=== PATIENT | female | born 1975 | race Caucasian/White ===

== ENCOUNTER 2020-11-17 14:35 | Outpatient (REF) | payer BC, SELFPAY ==
--- NOTE | ~2020-11-17 | XR_ITS ---
EXAMINATION: XR CHEST CLINICAL INFORMATION: Cough. COMPARISON: None TECHNIQUE: 2 views of the chest were obtained. FINDINGS: No significant abnormality is noted involving the heart, lungs, mediastinum, bony thorax or soft tissues. XR/XR chest 2V IMPRESSION: No acute cardiopulmonary process.
[2020-11-17 15:22] LABS: MANUAL DIFF FLAG NO
[2020-11-17 15:29] LABS: Basophils Absolute Auto 0.1 X10*3/uL (0.0-0.2); Basophils Percent Auto 0.4 % (0-2); Eosinophils Absolute Auto 1.2 X10*3/uL (0.0-0.4); Eosinophils Percent Auto 9.2 % (0-4); Hematocrit 45.3 % (37-47); Hemoglobin 15.3 g/dl (12.0-16.0); Imm Gran Abs Auto 0.05 X10*3/uL (0.00-0.03); Imm Gran Pct Auto 0.4 % (0.0-0.4); Lymphocytes Absolute Auto 2.8 X10*3/uL (1.2-4.9); Lymphocytes Percent Auto 20.4 % (20-40); Mean Corpuscular HGB Conc 33.8 g/dl (31.0-35.0); Mean Corpuscular Hemoglobin 32.3 pg (27.0-33.0); Mean Corpuscular Volume 95.6 fL (80-98); Mean Platelet Volume 9.6 fL (9.4-12.3); Monocytes Absolute Auto 0.8 X10*3/uL (0.1-1.2); Monocytes Percent Auto 6.2 % (2-11); Neutrophils Absolute Auto 8.6 X10*3/uL (2.0-8.3); Neutrophils Percent Auto 63.4 % (45-73); Platelet Count 291 X10*3/uL (160-400); Red Blood Count 4.74 X10*6/uL (4.20-5.50); Red Cell Distribution Width 12.7 % (11.0-16.0); White Blood Count 13.5 X10*3/uL (4.8-10.8)
[2020-11-17 15:48] LABS: Alanine Aminotransferase 24 U/L (0-31); Albumin Level 4.5 g/dL (3.5-5.0); Alkaline Phosphatase 64 U/L (39-117); Anion Gap 14 (12-20); Aspartate Amino Transferase 14 U/L (5-31); Bilirubin Total 1.4 mg/dL (0.0-1.0); Blood Urea Nitrogen 9 mg/dL (9-16); Calcium 9.4 mg/dL (8.4-10.2); Carbon Dioxide 27 mmol/L (22-29); Chloride 104 mmol/L (96-108); Estimated Glomerular Filt Rate > 60; Glucose Random 101 mg/dL (60-115); Sodium 140 mmol/L (135-145); Total Protein 7.1 g/dL (6.5-8.0)
[2020-11-18 11:54] LABS: SARS COV2 IgG Negative (Negative)
== END 2020-11-17 14:36 | disposition home or self-care (01) ==
LOC: HO.XRAY 14:35
PROVIDERS: PCP Family Medicine; Visit Provider Family Medicine
DX: Z00.00 Encounter for general adult medical examination without abnormal findings (principal); Z20.822 Contact with and (suspected) exposure to COVID-19; R05 Cough
CPT/HCPCS: 36415; 71046; 80053; 85025; 86769

== ENCOUNTER 2020-11-17 17:57 | Outpatient (REF) | payer BC, SELFPAY ==
[2020-11-17 18:43] LABS: Influenza A PCR NEGATIVE (Negative); Influenza B PCR NEGATIVE (Negative); Resp Syncy Virus RNA Qual PCR NEGATIVE (Negative); SARS COV2 PCR INHOUSE NEGATIVE (Negative)
== END 2020-11-17 17:58 | disposition home or self-care (01) ==
LOC: HO.LNP 17:57
PROVIDERS: Visit Provider Family Medicine
DX: Z20.822 Contact with and (suspected) exposure to COVID-19 (principal)
CPT/HCPCS: 0241U

== ENCOUNTER 2020-11-23 07:04 | Outpatient (REF) | payer BC, SELFPAY ==
[2020-11-23 11:07] LABS: Alanine Aminotransferase 15 U/L (0-31); Albumin Level 4.1 g/dL (3.5-5.0); Alkaline Phosphatase 53 U/L (39-117); Anion Gap 11 (12-20); Aspartate Amino Transferase 10 U/L (5-31); Blood Urea Nitrogen 10 mg/dL (9-16); Carbon Dioxide 26 mmol/L (22-29); Chloride 106 mmol/L (96-108); Cholesterol 243 mg/dL; Estimated Glomerular Filt Rate > 60; Glucose Fasting 79 mg/dL (60-99); HDL Cholesterol 68 mg/dL; LDL Cholesterol Calculated 146 mg/dl; Potassium 4.2 mmol/L (3.3-5.1); Sodium 139 mmol/L (135-145); Total Protein 6.3 g/dL (6.5-8.0); Triglycerides 147 mg/dL
[2020-11-23 11:21] LABS: TSH reflex Free T4 2.38 uIU/mL (0.32-4.0)
== END 2020-11-23 07:05 | disposition home or self-care (01) ==
LOC: HO.WFDLDS 07:04
PROVIDERS: Visit Provider Family Medicine
DX: Z00.00 Encounter for general adult medical examination without abnormal findings (principal)
CPT/HCPCS: 36415; 80053; 80061; 84443

== ENCOUNTER → 2020-12-04 10:16 | Outpatient (BNVA) | payer BC, SELFPAY | PROVIDERS: Visit Provider Internal Medicine Pulmonary Disease ==

== ENCOUNTER 2020-12-11 12:39 | Outpatient (REF) | payer BC, SELFPAY ==
--- NOTE | 2020-12-11 16:41 | PFT_ITS ---
FLOWS: FEV1 97% of predicted at 3.01 L. FVC 96% of predicted at 3.70 L. FEV1 to FVC ratio of 0.81. No bronchodilator response. LUNG VOLUMES: Total lung capacity 104% of predicted at 5.61 L. Residual volume 108% of predicted at 1.98 L. Slow vital capacity 102% of predicted at 3.63 L. Expiratory reserve volume 26% of predicted at 0.31 L. Diffusion capacity is normal. IMPRESSION: No obstructive or restrictive ventilatory defect. No bronchodilator response. Decreased expiratory reserve volume suggests extrathoracic restriction likely secondary to abdominal obesity. Eyad Nunes MD AP/MODL / [id number]
== END 2020-12-11 12:40 | disposition home or self-care (01) ==
LOC: HO.RESP 12:39
PROVIDERS: PCP Family Medicine; Visit Provider Internal Medicine Pulmonary Disease
DX: J45.909 Unspecified asthma, uncomplicated (principal)
CPT/HCPCS: 36415; 94060; 94727; 94729

== ENCOUNTER → 2020-12-21 09:24 | Outpatient (BNVA) | payer BC, SELFPAY | PROVIDERS: PCP Family Medicine; Visit Provider Advanced Practice Midwife ==

== ENCOUNTER → 2021-01-01 11:07 | Outpatient (BNVA) | payer BC, SELFPAY | PROVIDERS: PCP Family Medicine; Visit Provider Internal Medicine Pulmonary Disease | DX: J45.909 Unspecified asthma, uncomplicated (principal) ==

== ENCOUNTER 2021-01-04 10:09 | Outpatient (REF) | payer BC, SELFPAY ==
--- NOTE | ~2021-01-04 | MM_ITS ---
EXAMINATION: MM SCREENING DIGITAL BREAST TOMOSYNTHESIS, BILATERAL CLINICAL INFORMATION: Screening. Asymptomatic. The lifetime risk of breast cancer based on the Tyrer-Cuzick Model is 12%. COMPARISON: Mammography: 12/16/2019 (baseline). TECHNIQUE: Digital breast tomosynthesis is performed in both the craniocaudal and mediolateral oblique views along with computer-aided detection (CAD). Synthesized 2D images are generated from the tomosynthesis. FINDINGS: There are scattered areas of fibroglandular density (ACR BI-RADS breast composition Category b). Breast tissue composition borders on heterogeneously dense. There is fine fibronodular parenchymal pattern similar to prior study. There is no interval mass or architectural abnormality or abnormal calcifications. The axilla and skin contours are unremarkable. No significant changes. MM/MM tomosynthesis screening BI IMPRESSION: No mammographic evidence of malignancy. ASSESSMENT: BI-RADS 1: Negative RECOMMENDATION: Routine annual mammography screening. This patient's information was entered into a reminder system with a target due date for their next mammogram.
== END 2021-01-04 10:10 | disposition home or self-care (01) ==
LOC: HO.MAMMO 10:09
PROVIDERS: Visit Provider Family Medicine
DX: Z12.31 Encounter for screening mammogram for malignant neoplasm of breast (principal)
CPT/HCPCS: 77063; 77067

== ENCOUNTER → 2021-04-26 10:44 | Outpatient (BNVA) | payer BC, SELFPAY | PROVIDERS: PCP Family Medicine; Visit Provider Internal Medicine Pulmonary Disease | DX: J45.909 Unspecified asthma, uncomplicated (principal) ==

== ENCOUNTER 2021-05-31 10:46 | Outpatient (REF) | payer BC, SELFPAY | END 2021-05-31 10:47 | disposition home or self-care (01) | LOC: HO.MDS 10:46 | PROVIDERS: Visit Provider Internal Medicine Pulmonary Disease | DX: J45.50 Severe persistent asthma, uncomplicated (principal) | CPT/HCPCS: 96372 ==

== ENCOUNTER 2021-06-18 13:12 | Outpatient (REF) | payer BC, SELFPAY | END 2021-06-18 13:13 | disposition home or self-care (01) | LOC: HO.MDS 13:12 | PROVIDERS: Visit Provider Internal Medicine Pulmonary Disease | DX: J45.50 Severe persistent asthma, uncomplicated (principal) | CPT/HCPCS: 96372; J2357 ==

== ENCOUNTER 2021-07-05 12:31 | Outpatient (REF) | payer BC, SELFPAY | END 2021-07-05 12:32 | disposition home or self-care (01) | LOC: HO.MDS 12:31 | PROVIDERS: Visit Provider Internal Medicine Pulmonary Disease | DX: J45.50 Severe persistent asthma, uncomplicated (principal) | CPT/HCPCS: 96372; J2357 ==

== ENCOUNTER 2021-07-19 14:04 | Outpatient (REF) | payer BC, SELFPAY | END 2021-07-19 14:05 | disposition home or self-care (01) | LOC: HO.MDS 14:04 | PROVIDERS: Visit Provider Internal Medicine Pulmonary Disease | DX: J45.50 Severe persistent asthma, uncomplicated (principal) | CPT/HCPCS: 96372; J2357 ==

== ENCOUNTER 2021-08-02 11:25 | Outpatient (REF) | payer BC, SELFPAY | END 2021-08-02 11:26 | disposition home or self-care (01) | LOC: HO.MDS 11:25 | PROVIDERS: Visit Provider Internal Medicine Pulmonary Disease | DX: J45.50 Severe persistent asthma, uncomplicated (principal) | CPT/HCPCS: 96372; J2357 ==

== ENCOUNTER 2021-08-16 10:41 | Outpatient (REF) | payer BC, SELFPAY | END 2021-08-16 10:42 | disposition home or self-care (01) | LOC: HO.MDS 10:41 | PROVIDERS: Visit Provider Internal Medicine Pulmonary Disease | DX: J45.50 Severe persistent asthma, uncomplicated (principal) | CPT/HCPCS: 96372; J2357 ==

== ENCOUNTER 2021-09-06 11:42 | Outpatient (REF) | payer BC, SELFPAY | END 2021-09-06 11:43 | disposition home or self-care (01) | LOC: HO.MDS 11:42 | PROVIDERS: Visit Provider Internal Medicine Pulmonary Disease | DX: J45.50 Severe persistent asthma, uncomplicated (principal) | CPT/HCPCS: 96372; J2357 ==

== ENCOUNTER 2021-09-20 10:50 | Outpatient (REF) | payer BC, SELFPAY | END 2021-09-20 10:51 | disposition home or self-care (01) | LOC: HO.MDS 10:50 | PROVIDERS: Visit Provider Internal Medicine Pulmonary Disease | DX: J45.50 Severe persistent asthma, uncomplicated (principal) | CPT/HCPCS: 96372; J2357 ==

== ENCOUNTER 2021-10-04 12:36 | Outpatient (REF) | payer BC, SELFPAY | END 2021-10-04 12:37 | disposition home or self-care (01) | LOC: HO.MDS 12:36 | PROVIDERS: Visit Provider Internal Medicine Pulmonary Disease | DX: J45.50 Severe persistent asthma, uncomplicated (principal) | CPT/HCPCS: 96372; J2357 ==

== ENCOUNTER 2022-01-24 09:44 | Outpatient (REF) | payer BC, SELFPAY ==
[2022-01-24 10:00] LABS: MANUAL DIFF FLAG NO
[2022-01-24 10:25] LABS: Basophils Absolute Auto 0.1 X10*3/uL (0.0-0.2); Basophils Percent Auto 0.5 % (0-2); Eosinophils Absolute Auto 0.2 X10*3/uL (0.0-0.4); Eosinophils Percent Auto 1.9 % (0-4); Hematocrit 44.5 % (37.0-47.0); Hemoglobin 14.8 g/dl (12.0-16.0); Imm Gran Abs Auto 0.03 X10*3/uL (0.00-0.03); Imm Gran Pct Auto 0.3 % (0.0-0.4); Lymphocytes Absolute Auto 2.8 X10*3/uL (1.2-4.9); Mean Corpuscular HGB Conc 33.3 g/dl (31.0-35.0); Mean Corpuscular Hemoglobin 31.9 pg (27.0-33.0); Mean Corpuscular Volume 95.9 fL (80.0-98.0); Mean Platelet Volume 9.8 fL (9.4-12.3); Monocytes Absolute Auto 0.7 X10*3/uL (0.1-1.2); Monocytes Percent Auto 6.7 % (2-11); Neutrophils Absolute Auto 6.3 x10*3/uL (2.0-8.3); Neutrophils Percent Auto 62.6 % (45-73); Platelet Count 268 X10*3/uL (160-400); Red Blood Count 4.64 X10*6/uL (4.20-5.50); Red Cell Distribution Width 12.1 % (11.0-16.0); White Blood Count 10.1 X10*3/uL (4.8-10.8)
[2022-01-24 10:36] LABS: Appearance Urine Cloudy; Color Urine Yellow; Glucose Urine UA Negative (Negative); Leukocyte Esterase Urine Negative (Negative); Nitrite Urine Negative (Negative); PH 8.5 (5.0-9.0); UMIC TRIGGER UA YES; Urine Blood Trace (Negative); Urine Ketones Negative (Negative); Urine Protein Negative (Neg-Trace)
[2022-01-24 10:41] LABS: Bacteria Urine 1+ (None Seen); Hyaline Casts Urine 0-2 /LPF (0-2); WBC Urine 0-5 /HPF (0-5)
[2022-01-24 11:03] LABS: Alanine Aminotransferase 28 U/L (0-31); Albumin Level 4.4 g/dL (3.5-5.0); Alkaline Phosphatase 56 U/L (39-117); Anion Gap 14 (12-20); Aspartate Amino Transferase 17 U/L (5-31); Bilirubin Total 0.6 mg/dL (0.0-1.0); Blood Urea Nitrogen 10 mg/dL (9-16); Calcium 9.1 mg/dL (8.4-10.2); Carbon Dioxide 23 mmol/L (22-29); Chloride 103 mmol/L (96-108); Cholesterol 212 mg/dL; Estimated Glomerular Filt Rate > 60; Glucose Fasting 95 mg/dL (60-99); HDL Cholesterol 49 mg/dL; LDL Cholesterol Calculated 130 mg/dl; Potassium 4.4 mmol/L (3.3-5.1); Sodium 136 mmol/L (135-145); Total Protein 6.9 g/dL (6.5-8.0); Triglycerides 166 mg/dL
[2022-01-24 11:29] LABS: TSH reflex Free T4 1.46 uIU/mL (0.32-4.0)
[2022-01-24 11:59] LABS: Creatinine Urine 63.87 mg/dL; Microalbumin Urine < 5.0 mg/L
[2022-01-25 13:44] LABS: H Pylori Breath Test Negative (Negative)
== END 2022-01-24 09:45 | disposition home or self-care (01) ==
LOC: HO.LAB 09:44
PROVIDERS: Nurse Practitioner Family; PCP Family Medicine; Visit Provider Family Medicine
DX: Z00.00 Encounter for general adult medical examination without abnormal findings (principal); I10 Essential (primary) hypertension
CPT/HCPCS: 36415; 80053; 80061; 81001; 82043; 83013; 84443; 85025

== ENCOUNTER 2022-02-21 12:57 | Outpatient (REF) | payer BC, SELFPAY ==
--- NOTE | ~2022-02-21 | MM_ITS ---
EXAMINATION: MM SCREENING DIGITAL BREAST TOMOSYNTHESIS, BILATERAL CLINICAL INFORMATION: Screening. Asymptomatic. The lifetime risk of breast cancer based on the Tyrer-Cuzick Model is 10%. COMPARISON: Mammography: 01/04/2021, 12/16/2019 (baseline) TECHNIQUE: Digital breast tomosynthesis is performed in both the craniocaudal and mediolateral oblique views along with computer-aided detection (CAD). Synthesized 2D images are generated from the tomosynthesis. FINDINGS: There are scattered areas of fibroglandular density (ACR BI-RADS breast composition Category b). There are no significant masses, abnormal calcifications, or other abnormalities. Parenchymal pattern is similar to prior studies. No developing density or architectural abnormality. The axilla are unremarkable. MM/MM tomosynthesis screening BI IMPRESSION: No mammographic evidence of malignancy. ASSESSMENT: BI-RADS 1: Negative RECOMMENDATION: Routine annual mammography screening. This patient's information was entered into a reminder system with a target due date for their next mammogram.
== END 2022-02-21 12:58 | disposition home or self-care (01) ==
LOC: HO.MAMMO 12:57
PROVIDERS: Visit Provider Family Medicine
DX: Z12.31 Encounter for screening mammogram for malignant neoplasm of breast (principal)
CPT/HCPCS: 77063; 77067

== ENCOUNTER 2022-05-09 09:59 | Outpatient (REF) | payer BC, SELFPAY ==
[2022-05-09 13:00] LABS: Cholesterol 204 mg/dL; HDL Cholesterol 50 mg/dL; LDL Cholesterol Calculated 130 mg/dl; Triglycerides 123 mg/dL
== END 2022-05-09 10:00 | disposition home or self-care (01) ==
LOC: HO.WFDLDS 09:59
PROVIDERS: Visit Provider Family Medicine
DX: Z00.00 Encounter for general adult medical examination without abnormal findings (principal); E78.9 Disorder of lipoprotein metabolism, unspecified
CPT/HCPCS: 36415; 80061

== ENCOUNTER → 2022-07-06 14:32 | Outpatient (BNVA) | payer BC, SELFPAY | PROVIDERS: PCP Family Medicine; Visit Provider Advanced Practice Midwife | DX: Z13.89 Encounter for screening for other disorder (principal) ==

== ENCOUNTER 2022-07-27 14:19 | Outpatient (REF) | payer BC, SELFPAY ==
--- NOTE | ~2022-07-27 | US_ITS ---
EXAMINATION: US PELVIS CLINICAL INFORMATION: Abnormal uterine and vaginal bleeding; the last menstrual period was 2 weeks prior. COMPARISON: None available. TECHNIQUE: Ultrasound of the pelvis is performed using both transabdominal and transvaginal transducers along with Doppler. Transvaginal imaging is performed due to inadequate visualization transabdominally. FINDINGS: The uterus is of normal size and echogenicity measuring 9.7 x 4.5 x 5.5 cm. The uterus is anteverted and anteflexed. A regular, homogeneous endometrium is identified measuring 0.9 cm. FIBROIDS: There are 3 fibroids seen. 1. Location: Posterior body, subserosal. Size: 1.9 x 1.8 x 2.0 cm. Fibroid characteristics: Heterogeneously hypoechoic. 2. Location: Anterior mid body, myometrial. Size: 0.7 x 0.5 x 0.7 cm. Fibroid characteristics: Heterogeneously hypoechoic. 3. Location: Anterior upper body, myometrial. Size: 0.7 x 0.5 x 0.8 cm. Fibroid characteristics: Heterogeneously hypoechoic. Both ovaries are of normal size and echogenicity. The ovary measures 2.7 x 1.8 x 2.0 cm for a volume of 5.1 mL. The right ovary contains a 1.4 cm in maximal diameter dominant follicle. The left ovary measures 3.6 x 2.8 x 3.2 cm for a volume of 16.9 mL. The left ovary contains a 2.2 cm in maximal diameter physiologic cyst. There is no pelvic free fluid. US/US pelvic and transvaginal IMPRESSION: 1. There are uterine fibroids, as detailed. 2. Nabothian cysts are seen within the cervix. 3. A 1.4 cm right ovarian dominant follicle and a 2.2 cm left ovarian physiologic cysts show simple appearances and require no imaging follow-up.
== END 2022-07-27 14:20 | disposition home or self-care (01) ==
LOC: HO.US 14:19
PROVIDERS: PCP Family Medicine; Visit Provider Advanced Practice Midwife
DX: N93.9 Abnormal uterine and vaginal bleeding, unspecified (principal)
CPT/HCPCS: 76830; 76856

== ENCOUNTER 2022-08-17 14:56 | Outpatient (REF) | payer BC, SELFPAY | END 2022-08-17 14:57 | disposition home or self-care (01) | LOC: HO.LAB 14:56 | PROVIDERS: PCP Family Medicine; Visit Provider Advanced Practice Midwife | DX: D25.9 Leiomyoma of uterus, unspecified (principal); N93.9 Abnormal uterine and vaginal bleeding, unspecified; N83.209 Unspecified ovarian cyst, unspecified side; N88.8 Other specified noninflammatory disorders of cervix uteri; Z71.2 Person consulting for explanation of examination or test findings; Z32.02 Encounter for pregnancy test, result negative | CPT/HCPCS: 58100; 81025; 88305 ==

== ENCOUNTER 2022-08-24 09:02 | Outpatient (REF) | payer BC, SELFPAY ==
[2022-08-24 12:03] LABS: Hepatitis A Antibody IgG Nonreactive (Nonreactive); ~Hepatitis A Antibody IgG 0.35 S/CO (0.00-0.99)
[2022-08-24 12:04] LABS: HBS Num1 70.01 mIU/mL (0-7.99); HBc Num1 0.12 S/CO (0.00-0.79); Hepatitis B Core Antibody Nonreactive (Nonreactive); Hepatitis B Surface Antigen Negative (Negative); ~Hepatitis B Surface Antibody REACTIVE (Nonreactive); ~Hepatitis C Antibody Nonreactive (Nonreactive)
[2022-08-26 21:59] LABS: Hepatitis BE Antibody NON-REACTIVE (NON-REACTIVE)
== END 2022-08-24 09:03 | disposition home or self-care (01) ==
LOC: HO.WFDLDS 09:02
PROVIDERS: Visit Provider Family Medicine
DX: Z00.00 Encounter for general adult medical examination without abnormal findings (principal); Z11.59 Encounter for screening for other viral diseases; Z11.3 Encounter for screening for infections with a predominantly sexual mode of transmission; Z72.89 Other problems related to lifestyle
CPT/HCPCS: 36415; 86704; 86706; 86707; 86708; 86803; 87340

== ENCOUNTER → 2022-09-16 15:30 | Outpatient (BNVA) | payer BC, SELFPAY | PROVIDERS: PCP Family Medicine; Visit Provider Advanced Practice Midwife | DX: Z71.2 Person consulting for explanation of examination or test findings (principal) | CPT/HCPCS: 81025 ==

== ENCOUNTER 2022-11-23 10:02 | Outpatient (REF) | payer BC, SELFPAY ==
[2022-11-23 11:35] LABS: Alanine Aminotransferase 63 U/L (0-31); Albumin Level 4.4 g/dL (3.5-5.0); Alkaline Phosphatase 57 U/L (39-117); Anion Gap 11 (12-20); Aspartate Amino Transferase 43 U/L (5-31); Bilirubin Total 0.9 mg/dL (0.0-1.0); Blood Urea Nitrogen 12 mg/dL (9-16); Calcium 9.6 mg/dL (8.4-10.2); Carbon Dioxide 27 mmol/L (22-29); Chloride 102 mmol/L (96-108); Cholesterol 230 mg/dL (<200); Estimated Glomerular Filt Rate > 60; Glucose Fasting 99 mg/dL (60-99); HDL Cholesterol 57 mg/dL (>40); LDL Cholesterol Calculated 142 mg/dL (<100); Potassium 4.3 mmol/L (3.3-5.1); Sodium 136 mmol/L (135-145); Total Protein 7.3 g/dL (6.5-8.0); Triglycerides 159 mg/dL (<150)
[2022-11-23 11:50] LABS: TSH reflex Free T4 1.97 uIU/mL (0.32-4.0)
[2022-11-23 14:20] LABS: Appearance Urine Clear; Color Urine Yellow; Glucose Urine UA Negative (Negative); Leukocyte Esterase Urine Negative (Negative); Nitrite Urine Negative (Negative); PH 6.5 (5.0-9.0); Specific Gravity - Urine <= 1.005 (1.005-1.025); Urine Blood Negative (Negative); Urine Ketones Negative (Negative); Urine Protein Negative (Neg-Trace)
[2022-11-23 15:28] LABS: Creatinine Urine 70.28 mg/dL; Microalbumin Urine < 5.0 mg/L
== END 2022-11-23 10:03 | disposition home or self-care (01) ==
LOC: HO.LAB 10:02
PROVIDERS: PCP Family Medicine; Visit Provider Family Medicine
DX: Z00.00 Encounter for general adult medical examination without abnormal findings (principal); I10 Essential (primary) hypertension
CPT/HCPCS: 36415; 80053; 80061; 81003; 82043; 84443

== ENCOUNTER 2022-11-23 10:02 | Outpatient (AMB) | payer BC, SELFPAY ==
[2022-11-23 10:06] VITALS: BP 152/82; PULSE 74; O2SAT 96; BMI 33.1
--- NOTE | 2022-11-23 10:06 | A.OFFVIS_ITS ---
Intake Vital Signs 11/23/22 10:06 Height 5 ft 6 in Weight 205 lb 0.478 oz BMI 33.1 BP 152/82 H Blood Pressure Location Lt brachial Position Sitting Pulse 74 Pulse Source Doppler Pulse Oximetry (%) 96 Oxygen Delivery Method Room Air Intake Visit Reasons: Asthma Allergies Seasonal Allergies Allergy (Mild, Verified 11/23/22 10:10) Itchy Eyes HPI Asthma HPI Details 47-year-old lady, nonsmoker, with underlying history of bronchitis as a child now followed for moderate to severe persistent asthma and environmental allergies.? She continues on Symbicort, Singulair, Flonase, and albuterol MDI with excellent control of his symptoms. She denies any recent exacerbations. [facility] Medical History Asthma (Unknown) Cervical cyst Fibroid GERD (gastroesophageal reflux disease) High cholesterol Hypertension Ovarian cyst Uterine fibroid Surgical History History of dilatation and curettage Family History Mother HTN (hypertension) Father HTN (hypertension) Unknown Breast cancer Maternal Aunt Liver cancer Breast cancer Paternal Aunt Colon cancer Other Mental health disorder Social History Household Members: Spouse Housing: House Alcohol intake: current Alcohol intake frequency: 0-2 drinks per day Alcohol type: wine Patient Tobacco Use Status: Never used Tobacco e-Cigarette/Vaping Use: Never Used Second Hand Smoke Exposure: No service: No Current occupational status: employed 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 occupational 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: No Sexual orientation: Straight/Heterosexual Gender identity: Female Cognitive needs: No Hearing needs: No Vision needs: No (reading glasses) Female Reproductive History Menstrual Age of Menarche: 12 Review of Systems Const Denies daytime sleepiness, Denies excessive sweating, Denies fatigue, Denies fever(s), Denies lethargy, Denies malaise, Denies night sweats, Denies snoring and Denies weight loss Eyes Denies blurry vision and Denies itchy eyes ENT Denies nasal congestion, Denies post nasal drip, Denies sinus pain, Denies sinus pressure and Denies other ( Thrush) Card Denies chest pain, Denies pedal edema, Denies dyspnea, Denies orthopnea and Denies paroxysmal nocturnal dyspnea Resp Denies cough, Denies hemoptysis, Denies excessive phlegm production, Denies dyspnea, Denies snoring and Denies wheezing GI Denies abdominal pain and Denies heartburn Musc Denies myalgias, Denies arthralgias and Denies joint swelling Skin/Breast Denies rash Neuro Denies memory loss and Denies seizure-like activity Psych Denies abnormal sleep pattern, Denies anxiety and Denies memory loss Endo Denies excessive sweating, Denies fatigue and Denies heat intolerance [place]/Lymph Denies easy bruising Aller/Immun Denies itchy eyes, Denies seasonal rhinorrhea and Denies wheezing Physical Exam Vital Signs: Last Vital Signs Pulse 74 11/23/22 10:06 BP 152/82 H 11/23/22 10:06 Pulse Ox 96 11/23/22 10:06 Oxygen Delivery Method Room Air 11/23/22 10:06 BMI result Body Mass Index 33.1 Const General: no acute distress and alert Nutritional Appearance: not obese Orientation/consciousness: Other orientation findings ( oriented) HEENT Head: Yes atraumatic Eyes General: appearance normal, both eyes and all related structures Sclerae: sclerae normal EOM: EOMs intact bilaterally Neck Neck: Yes supple Lymphatic: no lymphadenopathy noted Resp Effort & Inspection: normal respiratory effort and no use of accessory muscles Auscultation: clear to auscultation bilaterally Cardio Rate: regular rate Rhythm: regular rhythm Heart sounds: no gallops, no murmurs and no rubs Skin General skin exam: other ( warm) Extrem General: No clubbing, No cyanosis and No edema Assessment & Plan Assessment & Plan (1) Asthma: Onset Date: Unknown Code(s): J45.909 - Unspecified asthma, uncomplicated Plan: Well controlled current regimen of Symbicort and albuterol MDI. Continue current regimen. Will obtain full PFT. (2) Environmental allergies: Code(s): Z91.09 - Other allergy status, other than to drugs and biological substances Plan: Well controlled on Singulair and Flonase. Continue current regimen. Orders: Orders PFT pulmonary function test Today J45.909 - Unspecified asthma, uncomplicated Coding Level of Care Code Est Pt Level 4 (62824) Diagnoses Asthma J45.909 Environmental allergies Z91.09
== END 2022-11-23 10:25 | disposition home or self-care (01) ==
PROVIDERS: PCP Family Medicine; Visit Provider Internal Medicine Pulmonary Disease
DX: J45.909 Unspecified asthma, uncomplicated (principal); Z91.09 Other allergy status, other than to drugs and biological substances
CPT/HCPCS: 99214

== ENCOUNTER 2022-11-30 08:36 | Outpatient (AMB) | payer BC, SELFPAY ==
[2022-11-30 08:41] VITALS: BP 132/72; PULSE 73; O2SAT 97; BMI 32.8
--- NOTE | 2022-11-30 08:41 | MHC.PC.OV ---
Vital Signs 11/30/22 08:41 Height 5 ft 6 in Weight 203 lb BMI 32.8 BP 132/72 Blood Pressure Location Lt brachial Position Sitting Pulse 73 Pulse Source Pulse Oximeter Pulse Oximetry (%) 97 Oxygen Delivery Method Room Air Intake Visit Reasons: f/u hypertension Intake Note: Patient is here for follow up on hypertension and labs. Allergies Seasonal Allergies Allergy (Mild, Verified 11/30/22 08:44) Itchy Eyes Medication List - Last Reconciled 11/30/22 by Rajan Moraes MD albuterol sulfate 90 mcg/actuation 2 puffs PO Q4H PRN 30 days clindamycin-benzoyl peroxide 1.2 %(1 % base) -5 % 1 appl topical DAILY fluticasone propionate 50 mcg/actuation (Flonase Allergy Relief) 1 spray intranasal Q12H 30 days lisinopril-hydrochlorothiazide 20-12.5 mg 1 tab PO DAILY 90 days montelukast 10 mg PO DAILY pantoprazole 40 mg PO QAM Symbicort 160-4.5 mcg/actuation (budesonide-formoterol) 2 puffs PO BID NS Tobacco use date assessed: 11/30/22 Dental Screening Dental Screen Date: 11/30/22 Did you have a dental visit in the last 12 months?: Yes Did you have a dental problem in the last 6 months where you did not have access to dental care?: No Was dental information given to patient?: Patient has dentist HPI f/u hypertension HPI Details 47 y/o female presents to f/u hypertension. Had encouraged weight control, exercise and salt/sodium reduction in diet last office visit. Blood pressure today is 132/72. She is on lisinopril-hydrochlorothiazide 20-12.5mg daily. Labs were drawn 11/23/22. Reviewed labs with pt. Triglycerides 159. TC 230. LDL 142. HDL 57. Elevated liver enzymes. Hepatitis labs were normal and negative. [facility], [facility] Medical History Asthma (Unknown) Cervical cyst Fibroid GERD (gastroesophageal reflux disease) High cholesterol Hypertension Ovarian cyst Uterine fibroid Surgical History History of dilatation and curettage Family History Mother HTN (hypertension) Father HTN (hypertension) Unknown Breast cancer Maternal Aunt Liver cancer Breast cancer Paternal Aunt Colon cancer Other Mental health disorder Social History Household Members: Spouse Housing: House Alcohol intake: current Alcohol intake frequency: 0-2 drinks per day Alcohol type: wine Patient Tobacco Use Status: Never used Tobacco e-Cigarette/Vaping Use: Never Used Second Hand Smoke Exposure: No service: No Current occupational status: employed 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 Blake Esteban, Mitzi Gutierrez, Chance Woods and colleagues, with an educational harish from [employer]. Review of Systems Const Denies chills, Denies fatigue, Denies fever(s), Denies headache(s) and Denies weakness ENT Denies dizziness and Denies headache(s) Card Denies chest pain, Denies lightheadedness, Denies dyspnea and Denies other (Palpitations) Resp Denies cough, Denies dyspnea, Denies wheezing and Denies other ( shortness of breath) Musc Denies numbness and Denies tingling Neuro Denies dizziness, Denies headache(s), Denies numbness, Denies tingling, Denies paresthesias and Denies weakness Psych Denies anxiety and Denies depression Endo Denies fatigue Aller/Immun Denies wheezing Physical exam (Primary Care) Vital Signs: Last Vital Signs Pulse 73 11/30/22 08:41 BP 132/72 11/30/22 08:41 Pulse Ox 97 11/30/22 08:41 Oxygen Delivery Method Room Air 11/30/22 08:41 BMI result Body Mass Index 32.8 Tobacco/Smoking Status: Tobacco use Status Tobacco use date assessed 11/30/22 11/30/22 08:51 Patient Tobacco Use Status Never used Tobacco 11/30/22 08:51 e-Cigarette/Vaping Use Never Used 11/30/22 08:51 Thrive Assessment: Date of Thrive Assessment Date Thrive assessed 12/06/21 11/30/22 08:51 Const General: no acute distress and well developed Nutritional Appearance: well nourished Orientation/consciousness: patient oriented x3 HENMT Head: Yes normocephalic and Yes atraumatic Eyes General: appearance normal, both eyes and all related structures Pupils: Equal, round and reactive pupils present EOM: EOMs intact bilaterally Resp Effort & Inspection: normal respiratory effort Auscultation: clear to auscultation bilaterally Cardio Rate: regular rate Rhythm: regular rhythm Heart sounds: S1 normal heart sound present, S2 normal heart sound present, no gallops, no murmurs and no rubs Neuro General: patient oriented x3 and gait normal Cranial nerves: Yes Equal, round and reactive pupils present Psych Affect: normal affect Assessment and Plan Assessment & Plan (1) Essential hypertension: Code(s): I10 - Essential (primary) hypertension Plan: Blood pressure is in controlled range but appears to fluctuate Encouraged diet lower in salt and sodium Encouraged exercise and weight loss (2) Hyperlipidemia: Code(s): E78.5 - Hyperlipidemia, unspecified Plan: TC, LDL and triglycerides are elevated Encouraged diet lower in saturated fats and cholesterol. Encouraged exercise and weight loss (3) Elevated liver enzymes: Code(s): R74.8 - Abnormal levels of other serum enzymes Plan: Likely multifactorial though may be primarily fatty liver disorder Will have patient work on weight loss and recheck in a few months. If liver enzymes are the same or higher, will check an ultrasound (4) Need for hepatitis B screening test: Code(s): Z11.59 - Encounter for screening for other viral diseases Plan: Patient shows immunity to hep B. No infection Also testing for hep C is negative Orders: Orders Comprehensive [place]. Panel Fast Today Z00.00 - Encounter for general adult medical examination without abnormal findings Lipid Panel Today Z00.00 - Encounter for general adult medical examination without abnormal findings TSH reflex Free T4 Today Z00.00 - Encounter for general adult medical examination without abnormal findings UA and rflx microscopic Today Z00.00 - Encounter for general adult medical examination without abnormal findings Coding Level of Care Code Est Pt Level 4 (33035) Diagnoses Essential hypertension I10 Hyperlipidemia E78.5 Elevated liver enzymes R74.8 Need for hepatitis B screening test Z11.59
== END 2022-11-30 09:17 | disposition home or self-care (01) ==
PROVIDERS: Visit Provider Family Medicine
DX: I10 Essential (primary) hypertension (principal); E78.5 Hyperlipidemia, unspecified; R74.8 Abnormal levels of other serum enzymes; Z11.59 Encounter for screening for other viral diseases
CPT/HCPCS: 99214

== ENCOUNTER 2023-02-09 07:49 | Outpatient (REF) | payer BC, SELFPAY ==
--- NOTE | 2023-02-09 08:34 | PFT_ITS ---
Forced vital capacity 91%, FEV1 87%, FEV1/FVC ratio is 77. [id number] 78%, MVV 44%. Post bronchodilator therapy, there is no significant change. Total lung capacity 85% and residual volume 83%. Diffusion capacity 97%. CONCLUSION: Normal pulmonary function test. However, the MVV is markedly decreased. This may be due to technical reason or poor conditioning. For this, clinical correlation is recommended. MD PATRICIA Dodge/KEYON / [id number]
== END 2023-02-09 07:50 | disposition home or self-care (01) ==
LOC: HO.RESP 07:49
PROVIDERS: PCP Family Medicine; Visit Provider Internal Medicine Pulmonary Disease
DX: J45.909 Unspecified asthma, uncomplicated (principal)
CPT/HCPCS: 94010; 94727; 94729

== ENCOUNTER → 2023-02-09 08:34 | Outpatient (BNV) | payer BC, SELFPAY | PROVIDERS: PCP Family Medicine; Visit Provider Internal Medicine | DX: J45.909 Unspecified asthma, uncomplicated (principal) | CPT/HCPCS: 94060; 94727; 94729 ==

== ENCOUNTER 2023-03-15 10:00 | Outpatient (REF) | payer BC, SELFPAY | END 2023-03-15 10:01 | disposition home or self-care (01) | LOC: HO.MAMMO 10:00 | PROVIDERS: PCP Family Medicine; Visit Provider Family Medicine | DX: Z12.31 Encounter for screening mammogram for malignant neoplasm of breast (principal) | CPT/HCPCS: 77063; 77067 ==

== ENCOUNTER → 2023-03-15 10:15 | Outpatient (BNV) | payer BC, SELFPAY | PROVIDERS: PCP Family Medicine; Visit Provider Radiology Diagnostic Radiology | DX: Z12.31 Encounter for screening mammogram for malignant neoplasm of breast (principal) | CPT/HCPCS: 77063; 77067 ==

== ENCOUNTER 2023-04-07 15:09 | Outpatient (AMB) | payer BC, SELFPAY ==
[2023-04-07 15:13] VITALS: BP 120/76; PULSE 73; TEMP 36.4; O2SAT 96; BMI 31.3
--- NOTE | 2023-04-07 15:13 | AM.OFFWIN_ITS ---
Intake Vital Signs 04/07/23 15:13 Height 5 ft 6 in Weight 194 lb BMI 31.3 BP 120/76 Blood Pressure Location Lt brachial Position Sitting Pulse 73 Pulse Source Pulse Oximeter Temp 97.6 F Temp Source Temporal Artery Scan Pulse Oximetry (%) 96 Oxygen Delivery Method Room Air Intake Visit Reasons: EST/cough and sinus inf(lobby) Intake Note: pt is here today for cough and sinus started 03/23 Patient Tobacco Use Status: Never used Tobacco Allergies Seasonal Allergies Allergy (Mild, Verified 04/07/23 15:20) Itchy Eyes Do you need a note to return to daycare/school/sports/work: No HPI HPI Comments History of Present Illness Details This is a 48-year-old female with history of mild persistent asthma who presented to the office complaining of persistent chest congestion with a dry cough x2 weeks. Patient also reports mild dyspnea on exertion and has been requiring her asthma inhalers more than usual. She reports some low-grade fever/chills intermittently over the past 2 weeks. She denies any chest pain. She denies any abdominal pain or nausea/vomiting/diarrhea. She denies any significant nasal/sinus congestion or rhinorrhea. [facility] Medical History Asthma (Unknown) Cervical cyst Fibroid GERD (gastroesophageal reflux disease) High cholesterol Hypertension Ovarian cyst Uterine fibroid Surgical History History of dilatation and curettage Family History Mother HTN (hypertension) Father HTN (hypertension) Unknown Breast cancer Maternal Aunt Liver cancer Breast cancer Paternal Aunt Colon cancer Other Mental health disorder Social History Household Members: Spouse Housing: House Alcohol intake: current Alcohol intake frequency: 0-2 drinks per day Alcohol type: wine Patient Tobacco Use Status: Never used Tobacco e-Cigarette/Vaping Use: Never Used Second Hand Smoke Exposure: No service: No Current occupational status: employed 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 occupational 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: No Sexual orientation: Straight/Heterosexual Gender identity: Female Cognitive needs: No Hearing needs: No Vision needs: No (reading glasses) Female Reproductive History Menstrual Age of Menarche: 12 Review of Systems Const All systems reviewed & are unremarkable except as noted in HPI and below Reports no additional complaints Eyes Reports no additional complaints ENT Reports no additional complaints Card Reports no additional complaints Resp Reports no additional complaints GI Reports no additional complaints Reports no additional complaints Musc Reports no additional complaints Skin/Breast Reports system reviewed and no additional complaints, except as documented Neuro Reports no additional complaints Psych Reports no additional complaints Endo Reports no additional complaints [place]/Lymph Reports no additional complaints Aller/Immun Reports no additional complaints Physical Exam Vital Signs: Last Vital Signs Temp 97.6 F 04/07/23 15:13 Pulse 73 04/07/23 15:13 BP 120/76 04/07/23 15:13 Pulse Ox 96 04/07/23 15:13 Oxygen Delivery Method Room Air 04/07/23 15:13 BMI result Body Mass Index 31.3 Const Other: Vital signs reviewed. Constitutional: Non-toxic appearing. No acute distress. Well-developed and well-nourished. HEENT: Normocephalic and atraumatic. Skin: Warm and dry. No rashes or lesions noted. Neck: Full and painless range of motion. No cervical lymphadenopathy. Cardio: Regular rate and rhythm. No murmurs, gallops, or rubs. No lower extremity edema. No JVD. Pulmonary: No respiratory distress. No accessory muscle usage. Scant expiratory wheezing throughout. Frequent junky cough without sputum production. Gastrointestinal: Soft, nontender, and nondistended in all 4 quadrants. Musculoskeletal: Normal range of motion in joints throughout the body. No deformity or other signs of injury. Neuro: Alert and oriented x4. Cranial nerves 2-12 grossly intact. No focal deficits appreciated. Psych: Normal mood and affect. Assessment & Plan Assessment & Plan (1) Acute asthmatic bronchitis: Code(s): J45.909 - Unspecified asthma, uncomplicated Plan: This is a 48-year-old female with history of mild persistent asthma who presented to the office complaining of chest congestion, dry cough, and mild dyspnea on exertion x2 weeks. On physical examination, she has scant expiratory wheezing throughout. Patient is maintaining oxygen saturations on room air and she does not appear to be in any acute respiratory distress. History and physical most consistent with an acute asthmatic bronchitis likely in the setting of environmental allergens/exposures. Patient sent home on PO azithromycin 500 mg today followed by 250 mg daily x4 days, PO prednisone 40 mg daily x5 days, PO benzonatate 200 mg 3 times daily as needed for cough, and PO guaifenesin 200mg every 4 hours as needed. Patient was advised to follow-up here or proceed to the emergency room if she were to develop persistent or worsening symptoms such as high-grade fevers, respiratory distress, or purulent sputum production. Patient verbalizes her understanding and she is in agreement with the plan. Medications: New azithromycin For 250 mg dose pack: take 500 mg today (day 1), then 250 mg for 4 days (days 2-5) PO 6 tabs 0RF benzonatate 200 mg PO TID PRN 20 caps 0RF cough prednisone 20 mg PO DAILY 10 tabs 0RF guaifenesin 200 mg (10 mL) PO Q4H PRN 500 mL 0RF cough Coding Level of Care Code Est Pt Level 3 (50043) Diagnoses Acute asthmatic bronchitis J45.909
== END 2023-04-07 17:00 ==
PROVIDERS: PCP Family Medicine; Visit Provider Physician Assistant Medical
DX: J45.909 Unspecified asthma, uncomplicated (principal)
CPT/HCPCS: 99213

== ENCOUNTER 2023-04-26 14:39 | Outpatient (REF) | payer BC, SELFPAY ==
--- NOTE | ~2023-04-26 | US_ITS ---
EXAMINATION: US PELVIS COMPLETE CLINICAL INFORMATION: Additional Notes/Special Instructions 6 month follow up for fibroid stability : COMPARISON: Pelvic ultrasound 07/27/2022 TECHNIQUE: Transabdominal and transvaginal imaging was performed. FINDINGS: The uterus is of normal size and echogenicity measuring 9.1 x 3.5 x 5.2 cm. A regular homogeneous endometrium is identified measuring 0.3 cm. There are multiple small myomas predominantly measuring 1 cm or less. The largest is 1.3 cm subserosal myoma in the posterior body of the uterus previously 2 cm decreased in size. There are 2 new myomas, an intramural myoma in the right body of the uterus measuring 1 cm and a 6 mm submucosal myoma in the anterior body of the uterus. Myomas otherwise appears similar to prior. Both ovaries are of normal size and echogenicity. The right measures 1.9 x 1.1 x 1.1 cm for a volume of 1.2 mL. The left measures 3 x 1.1 x 1.7 cm for a volume of 2.2 mL. There is no pelvic free fluid. US/US pelvic and transvaginal IMPRESSION: 1. There are 2 new myomas measuring 1 cm and a 6 mm submucosal myoma in the anterior body of the uterus. There are multiple additional small myomas the largest is 1.3 cm subserosal myoma in the posterior body of the uterus is decreased in size whereas the remainder of subcentimeter myomas are otherwise similar. 2. Normal sonographic appearance of the ovaries.
== END 2023-04-26 14:40 | disposition home or self-care (01) ==
LOC: HO.US 14:39
PROVIDERS: PCP Family Medicine; Visit Provider Advanced Practice Midwife
DX: D25.9 Leiomyoma of uterus, unspecified (principal)
CPT/HCPCS: 76830; 76856

== ENCOUNTER 2023-05-03 08:56 | Outpatient (AMB) | payer BC, SELFPAY ==
[2023-05-03 09:11] VITALS: BP 122/84; BMI 30.5
--- NOTE | 2023-05-03 09:11 | A.OFFVIS_ITS ---
Intake Vital Signs 05/03/23 09:11 Height 5 ft 6 in Weight 189 lb BMI 30.5 BP 122/84 Intake Visit Reasons: US follow/?Mirena insertion Intake Note: No unprotected intercourse since Touring Production Manager: Touring Production Manager Present (Mary Jane) Allergies Seasonal Allergies Allergy (Mild, Verified 05/03/23 09:13) Itchy Eyes Is last menstrual period known: Yes Last menstrual period: 04/16/23 HPI HPI Comments History of Present Illness Details Patient is here today for a follow-up for AUB, to discuss ultrasound findings and to have her Mirena IUD inserted today. History of uterine fibroids. has a history of vasectomy. [facility] Medical History Uterine fibroid Cervical cyst Ovarian cyst Fibroid GERD (gastroesophageal reflux disease) High cholesterol Hypertension Asthma (Unknown) Surgical History History of dilatation and curettage Family History Mother HTN (hypertension) Father HTN (hypertension) Unknown Breast cancer Maternal Aunt Liver cancer Breast cancer Paternal Aunt Colon cancer Other Mental health disorder Social History Household Members: Spouse Housing: House Alcohol intake: current Alcohol intake frequency: 0-2 drinks per day Alcohol type: wine Patient Tobacco Use Status: Never used Tobacco e-Cigarette/Vaping Use: Never Used Second Hand Smoke Exposure: No service: No Current occupational status: employed 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 occupational 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: No Sexual orientation: Straight/Heterosexual Gender identity: Female Cognitive needs: No Hearing needs: No Vision needs: No (reading glasses) Female Reproductive History Menstrual Age of Menarche: 12 Duration of menses: 3-5 days Date of last menstrual period: 04/16/23 Review of Systems Const All systems reviewed & are unremarkable except as noted in HPI and below Physical Exam Vital Signs: Last Vital Signs BP 122/84 05/03/23 09:11 BMI result Body Mass Index 30.5 Const General: cooperative, healthy appearing and no acute distress Orientation/consciousness: patient oriented x3 GI Inspection: Yes normal to inspection Palpation (GI): Soft to palpation and Other GI palpation findings present (Nontender) Rectal Exam - Female: visual inspection normal General: Yes bladder normal to palpation External Female Exam: normal appearance of the urethra Speculum Exam - Vagina: normal appearance of the vagina, normal palpation and normal vaginal discharge Speculum Exam - Cervix: normal appearance of the cervix and normal palpation Bimanual exam- vagina & uterus: normal bimanual exam, normal palpation, uterine size normal, bladder normal to palpation, normal palpation, uterine shape normal and non-tender Bimanual Exam- Adnexa, other: normal adnexae Neuro General: patient oriented x3 Office Procedures IUD Insert/Removal Details [id number] Insertion Procedure code (CPT) selection complete Contraception Insert/Removal Details Details: The patient is here today for a Mirena IUD insertion. She was counseled on the side effects including: menstrual cycle changes, pain, infection, bleeding, or expulsion. Risks of injury to the vagina, cervix, uterus, tubes, ovaries, bowel, bladder, and any adjacent tissue, resulting in nerve damage, scarring, and pain. Risks complications for the procedure that may require other test including ultrasounds, Xray, CT or MRI scan, surgery, anesthesia, blood transfusion. A urine test was completed and was negative. She was consented for the IUD insertion and has signed the consent form. All questions were answered. IUD Insertion: The patient was placed in the dorsal lithotomy position and a sterile speculum was inserted. The procedure was completed under aseptic technique. The cervix was cleansed with a Betadine solution x 3 swabs. A single toothed tenaculum was applied to the cervix for stabilization, and the uterus was sounded to 9cm. The device was inserted and released with a gentle motion. Bleeding from the tenaculum sites and the procedure were minimal. The strings were trimmed to 3cm. All of the equipment was removed and the bimanual was normal, no tip was palpable at the cervical os. The patient tolerated the procedure well and left the office in good condition. Post IUD Insertion Care: There may be some post insertion bleeding for several days that is usually light and can turn to a light brown or pink in color. Mild cramping may occur. Nothing in the vagina including: tampons, douching or intimacy for several days. You may take an over the counter mild analgesia like Tylenol or Advil (if no allergies), per the manufacturers recommendations on dosing and frequency. Follow the directions completely. Call the office if any: fever (over 100.4), flu like symptoms, abdominal pain, worsening cramping not resolved with over the counter medications, foul smelling vaginal odor, signs of infected appearing discharge, or heavy bleeding. Use a condom for a back up method if indicated for 7 days. Always use a condom for STI prevention; IUD's are not protective against STD's. Return to the office in 4-6 weeks for IUD recheck. This note is constructed using voice recognition software. While every effort has been made to ensure accuracy, rental sales representative errors may have been included. 16522 - Insertion Office Meds Mirena 21 mcg/24 hours (8 yrs) 52 mg intrauterine device Performing Provider: Tierney Bone CNM Performing Location: [facility] [place] [facility] Administered by: SCHUYLER Nuno on 05/03/23 09:52 Dose Route Admin Location Dispensed Lot Number Expiration Date [facility] Spin[employer] 1 device intrauterine 1 device [id number] 08/24/25 [id number] [employer] Results AMB Test Urine AMB Test Urine Negative Last Edit by SCHUYLER Nuno on 05/03/23 09:20 Results Reviewed Results Reviewed: Laboratory Last Values [facility]st Clinic Negative 05/03/23 09:20 Assessment & Plan Assessment & Plan (1) Uterine fibroid: Code(s): D25.9 - Leiomyoma of uterus, unspecified Plan: Counseled re: Leiomyoma: common pelvic neoplasm. Differential diagnosis-may include leiomyosarcoma which is a rare uterine sarcoma 3-7/100,000, difficult to distinguish from fibroids on ultrasound from uterine sarcoma's. Unlikely any single test will have a highly positive predictive value. Hysterectomy is not recommended for sole purpose of excluding malignant neoplasm. Report any AUB. Pelvic pressure, bloating, or pain. Expectant management follow up in 6 months, then yearly for stability. (2) Encounter to discuss test results: Code(s): Z71.2 - Person consulting for explanation of examination or test findings Plan: As noted above for fibroids. Plan See procedure notes. Return to the office in 4-6 weeks for IUD check. Orders: Orders AMB HCG Urine Test Today Z32.02 - Encounter for test, result negative US pelvic and transvaginal 6 Months D21.9 - Benign neoplasm of connective and other soft tissue, unspecified, D25.9 - Leiomyoma of uterus, unspecified AMB IUD Insertion/Removal - Practice Supplied Today Z30.430 - Encounter for insertion of intrauterine contraceptive device Coding Level of Care Code Procedure Only Diagnoses Uterine fibroid D25.9 Encounter to discuss test results Z71.2 CPT Codes Details - CPT: 93723-YNX Insertion ([id number]) Details - Contraception: 68194 - Insertion ([id number]) Comment Add modifier for ultrasound results diagnosis of fibroid
== END 2023-05-03 10:01 | disposition home or self-care (01) ==
PROVIDERS: PCP Family Medicine; Visit Provider Advanced Practice Midwife
DX: Z30.430 Encounter for insertion of intrauterine contraceptive device (principal); Z71.2 Person consulting for explanation of examination or test findings; Z32.02 Encounter for pregnancy test, result negative
CPT/HCPCS: 58300

== ENCOUNTER → 2023-05-03 08:56 | Outpatient (BNVA) | payer BC, SELFPAY | PROVIDERS: PCP Family Medicine; Visit Provider Advanced Practice Midwife | DX: Z30.430 Encounter for insertion of intrauterine contraceptive device (principal); D25.9 Leiomyoma of uterus, unspecified | CPT/HCPCS: 58300; 81025; J7298 ==

== ENCOUNTER 2023-06-21 09:14 | Outpatient (REF) | payer BC, SELFPAY ==
[2023-06-21 11:34] LABS: Appearance Urine Cloudy; Color Urine Dark Yellow; Glucose Urine UA Negative (Negative); Leukocyte Esterase Urine Trace (Negative); Nitrite Urine Negative (Negative); Specific Gravity - Urine 1.025 (1.005-1.025); UMIC TRIGGER UA YES; Urine Blood Negative (Negative); Urine Ketones 15 mg/dL (Negative); Urine Protein Trace mg/dL (Neg-Trace)
[2023-06-21 11:38] LABS: Bacteria Urine 3+ (None Seen); Hyaline Casts Urine 0-2 /LPF (0-2); RBC Urine 0-2 /HPF (0-2); Squamous Epithelial Cell Urine >20 /HPF (0-2)
[2023-06-21 12:09] LABS: Alanine Aminotransferase 44 U/L (0-31); Albumin Level 4.2 g/dL (3.5-5.0); Alkaline Phosphatase 65 U/L (39-117); Anion Gap 10 (12-20); Aspartate Amino Transferase 25 U/L (5-31); Bilirubin Total 1.4 mg/dL (0.0-1.0); Blood Urea Nitrogen 10 mg/dL (9-16); Calcium 9.3 mg/dL (8.4-10.2); Carbon Dioxide 26 mmol/L (22-29); Chloride 104 mmol/L (96-108); Cholesterol 179 mg/dL (<200); Estimated Glomerular Filt Rate > 60; Glucose Fasting 84 mg/dL (60-99); HDL Cholesterol 48 mg/dL (>40); LDL Cholesterol Calculated 115 mg/dL (<100); Potassium 3.8 mmol/L (3.3-5.1); Sodium 136 mmol/L (135-145); Total Protein 6.9 g/dL (6.5-8.0); Triglycerides 80 mg/dL (<150)
[2023-06-21 12:25] LABS: TSH reflex Free T4 1.25 uIU/mL (0.32-4.0)
== END 2023-06-21 09:15 | disposition home or self-care (01) ==
LOC: HO.WFDLDS 09:14
PROVIDERS: Visit Provider Family Medicine
DX: Z00.00 Encounter for general adult medical examination without abnormal findings (principal); Z13.6 Encounter for screening for cardiovascular disorders
CPT/HCPCS: 36415; 80053; 80061; 81001; 84443

== ENCOUNTER 2023-06-22 15:36 | Outpatient (AMB) | payer BC, SELFPAY ==
[2023-06-22 15:51] VITALS: BP 120/68; PULSE 76; O2SAT 96; BMI 28.3
--- NOTE | 2023-06-22 15:51 | A.OFFPC_ITS ---
Vital Signs 06/22/23 15:51 Height 5 ft 6 in Weight 175 lb 4 oz BMI 28.3 BP 120/68 Blood Pressure Location Lt brachial Position Sitting Pulse 76 Pulse Source Pulse Oximeter Pulse Oximetry (%) 96 Oxygen Delivery Method Room Air Intake Visit Reasons: CPE with f/u labs and health maint. Intake Note: Patient is here for her physical today. Allergies Seasonal Allergies Allergy (Mild, Verified 06/22/23 15:53) Itchy Eyes Tobacco use date assessed: 06/22/23 Dental Screening Dental Screen Date: 06/22/23 Did you have a dental visit in the last 12 months?: Yes Did you have a dental problem in the last 6 months where you did not have access to dental care?: No Was dental information given to patient?: Patient has dentist HPI CPE with f/u labs and health maint. HPI Details 48 y/o female presents for a CPE with f/ u labs and health maintenance. Labs were drawn 06/21/23. Reviewed labs with pt. Triglycerides 80. TC 179. LDL 115. HDL 48. Elevated ALT of 44. 3+ urine bacteria seen. Had went to ED a few weeks ago for constipation. [facility] Medical History Uterine fibroid Cervical cyst Ovarian cyst Fibroid GERD (gastroesophageal reflux disease) High cholesterol Hypertension Asthma (Unknown) Surgical History History of dilatation and curettage Family History Mother HTN (hypertension) Father HTN (hypertension) Unknown Breast cancer Maternal Aunt Liver cancer Breast cancer Paternal Aunt Colon cancer Other Mental health disorder Social History Household Members: Spouse Housing: House Alcohol intake: current Alcohol intake frequency: 0-2 drinks per day Alcohol type: wine Patient Tobacco Use Status: Never used Tobacco e-Cigarette/Vaping Use: Never Used Second Hand Smoke Exposure: No service: No Current occupational status: employed 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 1. Little interest or pleasure in doing things: not at all 2. Feeling down, depressed, or hopeless: not at all 3. Trouble falling or staying asleep, or sleeping too much: not at all 4. Feeling tired or having little energy: not at all 5. Poor appetite or overeating: not at all 6. Feeling bad about yourself - or that you are a failure or have let yourself or your family down: not at all 7. Trouble concentrating on things, such as reading the newspaper or watching television: not at all 8. Moving or speaking so slowly that other people could have noticed. Or the opposite - being so fidgety or restless that you have been moving around a lot more than usual: not at all 9. Thoughts that you would be better off or of hurting yourself in some way: not at all Total score: 0 Depression Screening Interpretation: Negative Depression Screening Done: Yes 70313 - PHQ-9 Billing: Yes Source: Developed by Drs. Blake Esteban, Mitzi Gutierrez, Chance Woods and colleagues, with an educational harish from [employer]. Thrive Questionnaire Date Thrive assessed: 06/22/23 I am a: Patient What is your living situation today?: I have a steady place to live Within the past 12 months, did the food you bought not last and you didn't have the money to get more?: Never true Within the past 12 months, did you worry whether your food would run out before you got money to buy more?: Never true Do you have trouble paying for medicines?: No Do you have trouble getting transportation to medical appointments?: No Do you have trouble paying your heating and electricity bill?: No Do you have trouble taking care of your child, family member or friend?: No Do you have trouble with day-to-day activities such as bathing, preparing meals, shopping, managing finances, etc.?: No Are you currently unemployed and looking for a job?: No Are you interested in more education?: No THRIVE Score: 0 AUDIT C Alcohol Use Questionnaire (AUDIT-C) 1. How often do you have a drink containing alcohol?: 4 or more times a week 2. How many drinks containing alcohol do you have on a typical day when you are drinking?: 1 or 2 Total Score: 4 CHEKO-7 AMB Questionnaire CHEKO-7 Date CHEKO - 7 assessed: 06/22/23 Feeling nervous, anxious, or on edge: 0 = Not at all Not being able to stop or control worryin = Not at all Worrying too much about different things: 0 = Not at all Trouble relaxin = Several days Being so restless that it is hard to sit still: 0 = Not at all Becoming easily annoyed or irritable: 0 = Not at all Feeling afraid as if something awful might happen: 0 = Not at all Total CHEKO-7 score (0-4 normal; 5-9 mild; 10-14 moderate; 15-21 severe): 1 Source: Developed by Drs. Blake Esteban, Mitzi Gutierrez, Chance Woods and colleagues, with an educational harish from [employer]. CHEKO-7 Assessment Billing CHEKO-7 Assessment Tool: CHEKO-7 Assessment 91651 ACT Questionnaire In the past 4 weeks, how much of the time did your asthma keep you from getting as much done at work, school or at home?: None of the time During the past 4 weeks, how often have you had shortness of breath?: Not at all During the past 4 weeks, how often did your asthma symptoms wake you up at night or earlier than usual in the morning?: Not at all During the past 4 weeks, how often have you had to use your rescue inhaler or nebulizer medication?: Not at all How would you rate your asthma control during the past 4 weeks?: Completely controlled Score: 25 Review of Systems Const Denies chills, Denies fatigue, Denies fever(s), Denies headache(s) and Denies weakness Eyes Denies change in vision ENT Denies dizziness, Denies headache(s), Denies hearing loss, Denies nasal congestion, Denies sinus pain, Denies sinus pressure and Denies sore throat Card Denies chest pain, Denies lightheadedness, Denies dyspnea and Denies other (palpitations) Resp Denies cough, Denies dyspnea and Denies wheezing GI Denies abdominal pain, Denies melena, Denies hematochezia, Denies change in bowel habits, Denies dyspepsia and Denies nausea Denies hematuria and Denies dysuria Musc Denies abnormal gait, Denies myalgias, Denies arthralgias, Denies numbness and Denies tingling Skin/Breast Denies rash, Denies unusual bruising and Denies wounds Neuro Denies abnormal gait, Denies dizziness, Denies headache(s), Denies memory loss, Denies numbness, Denies Sensory deficit (Neuro), Denies tingling and Denies weakness Psych Denies anxiety, Denies depression and Denies memory loss Endo Denies cold intolerance, Denies fatigue, Denies heat intolerance, Denies polydipsia and Denies polyuria [place]/Lymph Denies easy bleeding and Denies easy bruising Aller/Immun Denies wheezing Physical exam (Primary Care) Vital Signs: Last Vital Signs Pulse 76 06/22/23 15:51 BP 120/68 06/22/23 15:51 Pulse Ox 96 06/22/23 15:51 Oxygen Delivery Method Room Air 06/22/23 15:51 BMI result Body Mass Index 28.3 Tobacco/Smoking Status: Tobacco use Status Tobacco use date assessed 06/22/23 06/22/23 16:00 Patient Tobacco Use Status Never used Tobacco 06/22/23 16:00 e-Cigarette/Vaping Use Never Used 06/22/23 16:00 PHQ-9: PHQ-9 Score PHQ-9: Total score 0 06/22/23 16:40 Depression Screening Interpretation: Negative Thrive Assessment: Date of Thrive Assessment Date Thrive assessed 06/22/23 06/22/23 16:08 Const General: no acute distress, well developed, alert and awake Nutritional Appearance: well nourished Orientation/consciousness: patient oriented x3 HENMT Head: Yes normocephalic and Yes atraumatic Ears: hearing grossly normal bilaterally and TM's normal bilaterally General nose exam: Normal external nose present and Normal nares present Mouth: Normal oral and palatal mucosa present and moist mucous membranes Teeth and gingiva: dentition normal Throat: Yes posterior oropharynx normal Eyes General: appearance normal, both eyes and all related structures Pupils: Equal, round and reactive pupils present and Pupil accommodation reflex normal EOM: EOMs intact bilaterally Neck Neck: Yes normal visual inspection, Yes no lymphadenopathy and Yes trachea midline Thyroid: Thyroid normal Carotids: no bruits Lymphatic: no lymphadenopathy noted Chest Chest palpation & inspection: normal inspection of the chest Resp Effort & Inspection: normal respiratory effort Auscultation: clear to auscultation bilaterally Cardio Rate: regular rate Rhythm: regular rhythm Heart sounds: S1 normal heart sound present, S2 normal heart sound present, no gallops, no murmurs and no rubs Bruits: no abdominal aortic bruits and no carotid bruits GI Palpation (GI): No Abdominal aortic bruit present, Soft to palpation, nontender, No hepatosplenomegaly present and No Rebound tenderness present Auscultation: normal bowel sounds General: Yes no CVA tenderness Back/Spine/Pelvis Back: no CVA tenderness Cervical Spine: cervical ROM normal and No Cervical spine tenderness Thoracic/Lumbar Spine: thoraco-lumbar ROM normal, No pain with thoraco-lumbar ROM, No thoracic spinal tenderness and No lumbar spinal tenderness Skin Lesions: no lesions Rashes: no rashes Trauma: no lacerations or abrasions Wounds: no wounds Nails: normal Neuro General: patient oriented x3 Cranial nerves: Yes Equal, round and reactive pupils present Cognition (Neuro): normal cognition Gait exam (Neuro): Normal gait present Motor exam (neuro): 5/5 motor strength present throughout Sensory Exam: No Sensory deficit (Neuro) Deep tendon reflexes (DTR's): Right patellar reflex intensity grade: 2+ and Left patellar reflex intensity grade: 2+ Extrem General: Yes normal to inspection and No edema Psych Appearance: grossly normal Affect: normal affect Attitude: cooperative Thought process: Normal thought process present Assessment and Plan Assessment & Plan (1) Annual physical exam: Code(s): Z00.00 - Encounter for general adult medical examination without abnormal findings Plan: 48-year-old?female?presents?for?complete?physical?exam Encouraged?healthy?diet?with?active?lifestyle?and?plenty?of?exercise (2) Vision changes: Code(s): H53.9 - Unspecified visual disturbance Plan: Patient?notes?some?changes?in?visual?acuity Advised?she?contact?her?eye?doctor (3) Essential hypertension: Code(s): I10 - Essential (primary) hypertension Plan: Blood?pressure?is?well?controlled.??Goal?is?less?than?140/90 Continue?current?medication (4) Hyperlipidemia: Code(s): E78.5 - Hyperlipidemia, unspecified Plan: Lipids?now?all?within?normal?range?after?significant?weight?loss Continue?healthy?diet?and?watch?saturated?fats?and?cholesterol Continue?exercise?and?weight?loss (5) Elevated liver enzymes: Code(s): R74.8 - Abnormal levels of other serum enzymes Plan: Liver?enzymes?significantly?improved?with?weight?loss Continue?weight?loss?and?good?hydration Will?continue?to?follow?liver?enzymes (6) Bacteria in urine: Code(s): R82.71 - Bacteriuria Plan: Asymptomatic?bacteriuria Hydrate?well She?can?let?me?know?if?she?has?any?symptoms (7) Breast cancer screening by mammogram: Code(s): Z12.31 - Encounter for screening mammogram for malignant neoplasm of breast Plan: Last?mammogram?was?in?D ecember?and?showed?no?evidence?of?malignancy.??Will?continue?annual?screening (8) Screening for colon cancer: Code(s): Z12.11 - Encounter for screening for malignant neoplasm of colon Plan: She?has?an?appointment?for?colonoscopy (9) Screening for cervical cancer: Code(s): Z12.4 - Encounter for screening for malignant neoplasm of cervix Plan: Followed?by?her?tax manager cpa Up-to-date (10) Asthma: Onset Date: Unknown Code(s): J45.909 - Unspecified asthma, uncomplicated Plan: Stable Plan Had?started?semaglutide?for?obesity. She?continues?to?lose?weight?and?I?congratulated?her?on?this Continue?semaglutide Coding Level of Care Code Est Pt Level 3 (09780) Est Pt Prev Care 40-64y(54917) Diagnoses Annual physical exam Z00.00 Vision changes H53.9 Essential hypertension I10 Hyperlipidemia E78.5 Elevated liver enzymes R74.8 Bacteria in urine R82.71 Breast cancer screening by mammogram Z12.31 Screening for colon cancer Z12.11 Screening for cervical cancer Z12.4 Asthma J45.909 Additional Codes CHEKO-7 Assessment Billing - CHEKO-7 Assessment Tool: CHEKO-7 Assessment 71258 ([id number])
== END 2023-06-22 16:52 | disposition home or self-care (01) ==
PROVIDERS: PCP Family Medicine; Visit Provider Family Medicine
DX: Z00.00 Encounter for general adult medical examination without abnormal findings (principal); H53.9 Unspecified visual disturbance; I10 Essential (primary) hypertension; E78.5 Hyperlipidemia, unspecified; R74.8 Abnormal levels of other serum enzymes; R82.71 Bacteriuria; Z12.31 Encounter for screening mammogram for malignant neoplasm of breast; Z12.11 Encounter for screening for malignant neoplasm of colon; J45.909 Unspecified asthma, uncomplicated
CPT/HCPCS: 99396

== ENCOUNTER 2023-07-05 08:03 | Outpatient (AMB) | payer BC, SELFPAY ==
--- NOTE | 2023-07-05 08:07 | MHC.OFFVIS ---
Intake Vital Signs 07/05/23 08:12 Height 5 ft 6 in Weight 175 lb BMI 28.2 BP 122/82 Intake Visit Reasons: IUD Check Corporate Logistics Manager: Corporate Logistics Manager Present (Mary Jane) Allergies Seasonal Allergies Allergy (Mild, Verified 07/05/23 08:13) Itchy Eyes Is last menstrual period known: Yes Last menstrual period: 06/08/23 HPI HPI Comments History of Present Illness Details Patient is here today for a post Mirena IUD insertion check. She reports no concerns with bleeding. She is happy with the IUD in place to help with her AUB. PFSH Medical History Uterine fibroid Cervical cyst Ovarian cyst Fibroid GERD (gastroesophageal reflux disease) High cholesterol Hypertension Asthma (Unknown) Surgical History History of dilatation and curettage Family History Mother HTN (hypertension) Father HTN (hypertension) Unknown Breast cancer Maternal Aunt Liver cancer Breast cancer Paternal Aunt Colon cancer Other Mental health disorder Social History Household Members: Spouse Housing: House Alcohol intake: current Alcohol intake frequency: 0-2 drinks per day Alcohol type: wine Patient Tobacco Use Status: Never used Tobacco e-Cigarette/Vaping Use: Never Used Second Hand Smoke Exposure: No service: No Current occupational status: employed 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 occupational 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: No Sexual orientation: Straight/Heterosexual Gender identity: Female Cognitive needs: No Hearing needs: No Vision needs: No (reading glasses) Female Reproductive History Menstrual Age of Menarche: 12 Date of last menstrual period: 06/08/23 control method: progestin IUCD (Mirena 05/03/23) Review of Systems Const All systems reviewed & are unremarkable except as noted in HPI and below Physical Exam Vital Signs: Last Vital Signs BP 122/82 07/05/23 08:12 BMI result Body Mass Index 28.2 Const General: cooperative, healthy appearing and no acute distress Orientation/consciousness: patient oriented x3 GI Inspection: Yes normal to inspection Palpation (GI): Soft to palpation and Other GI palpation findings present (Nontender) Rectal Exam - Female: visual inspection normal General: Yes bladder normal to palpation External Female Exam: normal appearance of the urethra Speculum Exam - Vagina: normal appearance of the vagina, normal palpation and normal vaginal discharge Speculum Exam - Cervix: normal appearance of the cervix, normal palpation and Other cervical findings present (IUD strings present) Bimanual exam- vagina & uterus: normal bimanual exam, normal palpation, uterine size normal, bladder normal to palpation, normal palpation, uterine shape normal and non-tender Bimanual Exam- Adnexa, other: normal adnexae Neuro General: patient oriented x3 Assessment & Plan Assessment & Plan (1) IUD check up: Code(s): Z30.431 - Encounter for routine checking of intrauterine contraceptive device Plan Discussed: Monitoring menstrual cycle. IUD is good for 5 years for treatment of AUB. Schedule annual exam for November 2023. Advised to call the office if she has any concerns with her IUD. All of her questions and concerns were addressed to the best of my ability and shared decision making. She is agreeable to the plan of care. This note is constructed using voice recognition software. While every effort has been made to ensure accuracy, activities specialist errors may have been included. Coding Level of Care Code Est Pt Level 2 (78217) Diagnoses IUD check up Z30.569
[2023-07-05 08:12] VITALS: BP 122/82; BMI 28.2
== END 2023-07-05 08:54 | disposition home or self-care (01) ==
PROVIDERS: PCP Family Medicine; Visit Provider Advanced Practice Midwife
DX: Z30.431 Encounter for routine checking of intrauterine contraceptive device (principal)
CPT/HCPCS: 99212

== ENCOUNTER → 2023-07-05 08:03 | Outpatient (BNVA) | payer BC, SELFPAY | PROVIDERS: PCP Family Medicine; Visit Provider Advanced Practice Midwife ==

== ENCOUNTER 2023-08-02 10:00 | Day surgery (SDC) | payer BC, SELFPAY ==
[2023-08-01 07:31] VITALS: BMI 32.6
--- NOTE | 2023-08-01 08:36 | HO.ANESPROP2 ---
Documented by User: Megha Mtz NP 08/01/23 08:37 HPI - Anesthesia Eval Consult details Narrative: 48yo F for Upper Endoscopy and Colonoscopy PMF Active Problems Active Problems: All Active Problems Vision changes (Acute) Bacteria in urine (Acute) Elevated liver enzymes (Acute) Hyperlipidemia (Acute) Uterine fibroid (Acute) Cervical cyst (Acute) Ovarian cyst (Acute) Fibroid (Acute) Borderline high cholesterol (Acute) Screening for colon cancer (Acute) Screening for cervical cancer (Acute) Annual physical exam (Acute) Essential hypertension (Acute) Asthma (Acute Unknown) Environmental allergies (Acute) Breast cancer screening by mammogram (Acute) Annual visit for general adult medical examination without abnormal findings (Acute) Dyspnea (Acute) Dyspnea (Acute) Cough (Acute) GERD (gastroesophageal reflux disease) (Acute) Laboratory examination ordered as part of a routine general medical examination (Acute) Past Medical History Medical History Uterine fibroid Cervical cyst Ovarian cyst Fibroid GERD (gastroesophageal reflux disease) High cholesterol Hypertension Asthma (Unknown) Family History Family History Mother HTN (hypertension) Father HTN (hypertension) Unknown Breast cancer Maternal Aunt Liver cancer Breast cancer Paternal Aunt Colon cancer Other Mental health disorder Surgical History Surgical History History of dilatation and curettage Social History Social History Household Members: Spouse Housing: House Alcohol intake: current Alcohol intake frequency: 0-2 drinks per day Alcohol type: wine Patient Tobacco Use Status: Never used Tobacco e-Cigarette/Vaping Use: Never Used Second Hand Smoke Exposure: No Advance Directives: No Advance Directives Information Provided: Yes service: No Current occupational status: employed 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 occupational 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: No Sexual orientation: Straight/Heterosexual Gender identity: Female Cognitive needs: No Hearing needs: No Vision needs: No (reading glasses) Meds Allergies Allergy/AdvReac Type Severity Reaction Status Date / Time Seasonal Allergies Allergy Mild Itchy Eyes Verified 07/05/23 08:13 Home Medications ?Medication ?Instructions ?Recorded ?Confirmed ?Last Taken ?Type clindamycin 1.2 % (1 % 1 appl topical DAILY 05/16/22 11/30/22 Unknown History base)-benzoyl peroxide 5 % topical gel semaglutide (weight loss) 1 mg/0.5 1 mg subcut QWEEK 06/22/23 Unknown History mL subcutaneous pen injector levonorgestrel 21 mcg/24 hours (8 intrauterine 07/05/23 Unknown History yrs) 52 mg intrauterine device (Mirena) Exam Height,Weight and Vital Signs: Height 5 ft 6 in Weight 91.626 kg Assessment and Plan Assessment Anesthesia Assessment: Chart Reviewed Documented by User: Anita Gerard MD 08/02/23 10:56 PMFSH Past Medical History Medical History Uterine fibroid Cervical cyst Ovarian cyst Fibroid GERD (gastroesophageal reflux disease) High cholesterol Hypertension Asthma (Unknown) Family History Family History Mother HTN (hypertension) Father HTN (hypertension) Unknown Breast cancer Maternal Aunt Liver cancer Breast cancer Paternal Aunt Colon cancer Other Mental health disorder Surgical History Surgical History History of dilatation and curettage History of Problems with Anesthesia: No Social History Social History Household Members: Spouse Housing: House Alcohol intake: current Alcohol intake frequency: 0-2 drinks per day Alcohol type: wine Patient Tobacco Use Status: Never used Tobacco e-Cigarette/Vaping Use: Never Used Second Hand Smoke Exposure: No Advance Directives: No Advance Directives Information Provided: Yes service: No Current occupational status: employed 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 occupational 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: No Sexual orientation: Straight/Heterosexual Gender identity: Female Cognitive needs: No Hearing needs: No Vision needs: No (reading glasses) Meds Allergies Allergy/AdvReac Type Severity Reaction Status Date / Time Seasonal Allergies Allergy Mild Itchy Eyes Verified 07/05/23 08:13 Home Medications ?Medication ?Instructions ?Recorded ?Confirmed ?Last Taken ?Type clindamycin 1.2 % (1 % 1 appl topical DAILY 05/16/22 11/30/22 Unknown History base)-benzoyl peroxide 5 % topical gel semaglutide (weight loss) 1 mg/0.5 1 mg subcut QWEEK 06/22/23 Unknown History mL subcutaneous pen injector levonorgestrel 21 mcg/24 hours (8 intrauterine 07/05/23 Unknown History yrs) 52 mg intrauterine device (Mirena) Exam Airway Mallampati Class: II TM Dist: >3cm Neck ROM: Full Loose/Missing/Broken Teeth: No Heart: RRR Lungs: CTA Assessment and Plan Assessment Anesthesia Assessment: Anesthesia Plan Discussed Final Anesthetic Review History of Problems with Anesthesia: No NPO: Yes ASA Class: II Final Preanesthetic Review: Meds/Allgs Chart Reviewed, Consent Obtained/Reviewed and Anes Risks/Benef Reviewed Patient Risk: Low Procedure Risk: Intermediate Anesthetic Plan Anesthetic Plan: MAC: Disposition: Standard PACU
[2023-08-02 10:43] LABS: UPreg QC Valid YES; Urine Pregnancy NEGATIVE (NEGATIVE)
[2023-08-02 10:52] VITALS: BP 137/90; PULSE 77; RESP 20; TEMP 36.6; O2SAT 97; BMI 32.6
[2023-08-02] MEDS: Lactated Ringers 1,000 ML 100 ML IVCONT (10:57)
--- NOTE | 2023-08-02 11:30 | MHC.SHP ---
Pre-Procedural Eval Section A - 24 Hr Update-Section A only Date of Service: 08/02/23 Section B - Complete if H&P > 30 days Chief Complaint: reflux disease,screening Relevant Family History (Specify if Yes): No Relevant Social History: None Present Medications: see Short Stay Collaborative assessment Medical History: Significant History (Uterine fibroid Cervical cyst Ovarian cyst Fibroid GERD (gastroesophageal reflux disease) High cholesterol Hypertension Asthma (Unknown)) History of Previous Operations: Relevant previous surgery/procedure and date(s) (History of dilatation and curettage) Allergies: Allergies Allergy/AdvReac Type Severity Reaction Status Date / Time Seasonal Allergies Allergy Mild Itchy Eyes Verified 07/05/23 08:13 Review of Systems Sugical H&P ROS: Negative: Constitution, Cardiovascular, Respiratory, Neurological, Psychiatric, Hem-Onc, Allergic/Immunologic, Gastrointestinal, Genitourinary, Musculoskeletal, Integumentary, Endocrine and Eyes/Ears/Nose/Throat Exam Surgical H&P Exam: Normal: HEENT, Normal: Heart, Normal: Lungs, Normal: Extremities, Normal: Abdomen, Normal: Skin and Normal: Neurological Plan Diagnosis/Plan: Unchanged I have reviewed the history and physical and performed a pertinent physical examination on my patient. No changes have occurred unless specified. Time Spent With Patient Time: Total time managing care of this patient today ____ minutes.
--- NOTE | 2023-08-02 11:31 | P.OPN-COLO_ITS ---
Colonoscopy Operative Note Operative Note Date of Service: 08/02/23 Narrative: Operative Information Procedure Description: EGD, Colonoscopy Indication: GERD, colon screening Anesthesia: MAC FLEXIBLE TRANSORAL UPPER GASTROINTESTINAL ENDOSCOPY AND COLONOSCOPY PROCEDURE NOTE UPPER ENDOSCOPY Consent: Indications for the procedure and potential complications of bleeding, perforation, reaction to medications and missed diagnosis were discussed with the patient and informed consent was obtained. Instrument: Olympus GIF H 190 J mid size upper endoscope Monitoring: Vital signs and clinical assessment, continuous EKG monitoring, Pulse oximetry, Carbon Dioxide monitoring and blood pressure monitoring were done throughout the procedure. Procedure: The patient was placed in the left lateral decubitis position and pre-procedure medications were administered and a bite block was placed. The endoscope was inserted into the mouth and advanced under direct vision to the third part of duodenum. A careful inspection was made as the upper endoscope was withdrawn including a retroflexed examination of the proximal stomach; Findings and interventions are described below. Findings: Larynx:normal Esophagus: GE junction at 40 cm, diaphragm hiatus at 40 cm, irreglar z line with some small salmon pink islands, bx taken from GEJ, distal and proximal esophagus Stomach: Mild erythema. Biopsies were obtained. Grade 2 flap valve on retroflexed examination of the cardia. Duodenum: Normal bulb and descending duodenum, Intervention: Biopsies as noted above, COLONOSCOPY Instrument: Olympus variable stiffness pediatric scope 190L Colonoscopy Monitoring: Vital signs and clinical assessment, continuous EKG monitoring, Pulse oximetry, Carbon Dioxide monitoring and blood pressure monitoring were done throughout the procedure. Colon withdrawal time was 8 minutes. Procedure: The patient was placed in the left lateral decubitis position and pre-procedure medications were administered. After a digital rectal examination of the ano-rectum, the video colonoscope was inserted into the rectum and advanced through the colon to the cecum/TI. The colonoscope was slowly withdrawn in a retrograde panoramic fashion and the colon mucosa was carefully examined including a retroflexed view of the rectum. Findings and interventions are described below. Procedure Difficulty:moderate Findings: Terminal Ileum-normal Cecum:normal Right sided retroflexion- normal Ascending Colon: normal Transverse Colon -normal Descending Colon:normal Sigmoid Colon: normal Rectum: Retroflexion with small internal hemorrhoids, grade I Anorectum - normal Colon preparation: [place] Bowel Preparation Scale Right colon; 2 Transverse colon: 3 Left colon; 3 (0 = Unprepared colon segment with mucosa not seen due to solid stool that wily ot be cleared. 1 = Portion of mucosa of the colon segment seen, but other areas of the colon segment not well seen due to staining, residual stool and/or opaque liquid. 2 = Minor amount of residual staining, small fragments of stool and/or opaque liquid, but mucosa of colon segment seen well. 3 = Entire mucosa of colon segment seen well with no residual staining, small fragments of stool or opaque liquid) Impression and Post Procedure Diagnosis: Endoscopy Findings: possible barretts mild gastritis Colonoscopy Findings: internal hemorrhoids Plan: Await Pathology results Repeat Colonoscopy in 10 years or earlier if clinically indicated High fiber diet leaflet avoid straining at stool, epsom salts and sitz bath, anusol supps or cream cont with PPI, some of her sx maybe from semaglutide Above findings were reviewed with the patient and relevant handouts were provided if indicated.
[2023-08-02 12:16] VITALS: BP 110/69; PULSE 65; RESP 20; TEMP 36.2; O2SAT 100
[2023-08-02 12:31] VITALS: BP 132/90; PULSE 70; RESP 18; TEMP 36.3; O2SAT 98
== END 2023-08-02 13:44 | disposition home or self-care (01) ==
PROVIDERS: Nurse Practitioner; PCP Family Medicine; Visit Provider Internal Medicine Gastroenterology
PROC: (CPT 45378; principal; 2023-08-02 14:30)
DX: Z12.11 Encounter for screening for malignant neoplasm of colon (principal); K64.0 First degree hemorrhoids; K21.9 Gastro-esophageal reflux disease without esophagitis; K29.70 Gastritis, unspecified, without bleeding; J45.909 Unspecified asthma, uncomplicated
CPT/HCPCS: 45378; 43239; 81025; 88305; 88313; 88342; J2250; J2704

== ENCOUNTER → 2023-08-02 10:00 | Outpatient (BNV) | payer BC, SELFPAY | PROVIDERS: PCP Family Medicine; Visit Provider Internal Medicine Gastroenterology | DX: Z12.11 Encounter for screening for malignant neoplasm of colon (principal); K64.0 First degree hemorrhoids; K21.9 Gastro-esophageal reflux disease without esophagitis; K29.70 Gastritis, unspecified, without bleeding | CPT/HCPCS: 43239; 45378 ==

== ENCOUNTER 2023-08-16 11:08 | Outpatient (AMB) | payer BC, SELFPAY ==
--- NOTE | 2023-08-16 11:41 | A.OFFVIS_ITS ---
Vital Signs 08/16/23 11:54 Height 5 ft 6 in Weight 163 lb BMI 26.3 BP 113/76 Blood Pressure Location Lt brachial Position Sitting Pulse 73 Intake Visit Reasons: S/p egd/colon Intake Note: Patient follow up for EGD/Colonoscopy results. Patient cc: N/V on ad off, body aches and medication is helping with GERD. 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 However patient does report to have symptoms of acid reflux. Patient is taking [id number] Pepcid. Patient states that this has been going on for over 3 years. Patient also has a history of asthma on daily corticosteroid inhaler. Denies any issues with anesthesia in the past.? Denies any history of sleep apnea.? No history infectious diseases in the past or present.? Not on any anticoagulation therapy.? No family or personal history of colon cancer or polyps.? Patient denies melena, hematochezia, unintentional weight loss or ribbon like stools.? Discussed at length the pre-procedure,? prep, diet & medications as well as what to expect prior, during and after the procedure.?? Stressed the importance of good bowel prep. ?Recommended the use of Vaseline or Calmoseptine OTC & baby wipes with bowel movements to promote comfort.? ?Patient verbalizes understanding and agrees to plan of care.? She was given the opportunity to ask questions and all questions answered.? We will see her after the procedure.? GERD (gastroesophageal reflux disease) Discussed with patient the importance of avoiding dietary triggers especially spicy food and staying upright for minimum 3 hours after meals. I will start patient on pantoprazole. Patient will take it half an hour before breakfast daily. We will do H pylori breath test in the office today. Will treat empirically positive. Patient will be sent for upper endoscopy to rule out gastritis, esophagitis, gastric or peptic ulcers. Plan Orders Orders H Pylori Breath Test Today Medications New pantoprazole take one tablet half an hour before breakfast 40 mg PO DAILY 90 tabs 2RF K21.9 UPPER ENDOSCOPY AND COLONOSCOPY Findings: Larynx:normal Esophagus: GE junction at 40 cm, diaphragm hiatus at 40 cm, irreglar z line with some small salmon pink islands, bx taken from GEJ, distal and proximal esophagus Stomach: Mild erythema. Biopsies were obtained. Grade 2 flap valve on retroflexed examination of the cardia. Duodenum: Normal bulb and descending duodenum, Intervention: Biopsies as noted above, COLONOSCOPY Instrument: Olympus variable stiffness pediatric scope 190L Colonoscopy Monitoring: Vital signs and clinical assessment, continuous EKG monitoring, Pulse oximetry, Carbon Dioxide monitoring and blood pressure monitoring were done throughout the procedure. Colon withdrawal time was 8 minutes. Procedure: The patient was placed in the left lateral decubitis position and pre-procedure medications were administered. After a digital rectal examination of the ano-rectum, the video colonoscope was inserted into the rectum and advanced through the colon to the cecum/TI. The colonoscope was slowly withdrawn in a retrograde panoramic fashion and the colon mucosa was carefully examined including a retroflexed view of the rectum. Findings and interventions are described below. Procedure Difficulty:moderate Findings: Terminal Ileum-normal Cecum:normal Right sided retroflexion- normal Ascending Colon: normal Transverse Colon -normal Descending Colon:normal Sigmoid Colon: normal Rectum: Retroflexion with small internal hemorrhoids, grade I Anorectum - normal Colon preparation: Jessie Bowel Preparation Scale Right colon; 2 Transverse colon: 3 Left colon; 3 (0 = Unprepared colon segment with mucosa not seen due to solid stool that cannot be cleared. 1 = Portion of mucosa of the colon segment seen, but other areas of the colon segment not well seen due to staining, residual stool and/or opaque liquid. 2 = Minor amount of residual staining, small fragments of stool and/or opaque liquid, but mucosa of colon segment seen well. 3 = Entire mucosa of colon segment seen well with no residual staining, small fragments of stool or opaque liquid) Impression and Post Procedure Diagnosis: Endoscopy Findings: possible barretts mild gastritis Colonoscopy Findings: internal hemorrhoids Plan: Await Pathology results Repeat Colonoscopy in 10 years or earlier if clinically indicated High fiber diet leaflet avoid straining at stool, epsom salts and sitz bath, anusol supps or cream cont with PPI, some of her sx maybe from semaglutide PATHOLOGY: Diagnosis A. Stomach, biopsy: Antral-type and oxyntic mucosa within normal limits; no Helicobacter organisms seen. B. GE junction, biopsy: - Cardiofundic-type mucosa with moderate chronic active inflammation; no intestinal metaplasia seen. - Squamous mucosa within normal limits. C. Esophagus, distal, biopsy: Squamous epithelium within normal limits; no inflammation seen. D. Esophagus, proximal, biopsy: Squamous epithelium within normal limits; no inflammation seen TODAY'S VISIT Patient is here today for follow-up and to discuss upper endoscopy and colonoscopy results. I seen patient 2 years ago. Started taking semaglutide for weight loss and reports that she lost 40 lb. Patient states that she is eating better. Patient is snacking less. Denies any upper abdominal pain. Occasional acid reflux, however reports that pantoprazole has been helpful. Patient denies any dyspepsia, dysphagia or odynophagia. Denies any issues with the prep, anesthesia or procedure itself. Colonoscopy showed no polyps. No diverticulosis, small internal hemorrhoids found. [facility] Medical History Uterine fibroid Cervical cyst Ovarian cyst Fibroid GERD (gastroesophageal reflux disease) High cholesterol Hypertension Asthma (Unknown) Surgical History (Updated 08/16/23 @ 11:53 by Michelle Ontiveros) Hx of colonoscopy History of esophagogastroduodenoscopy (EGD) History of dilatation and curettage Family History Mother HTN (hypertension) Father HTN (hypertension) Unknown Breast cancer Maternal Aunt Liver cancer Breast cancer Paternal Aunt Colon cancer Other Mental health disorder Social History Household Members: Spouse Housing: House Alcohol intake: current Alcohol intake frequency: 0-2 drinks per day Alcohol type: wine Patient Tobacco Use Status: Never used Tobacco e-Cigarette/Vaping Use: Never Used Second Hand Smoke Exposure: No service: No Current occupational status: employed 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 occupational 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: No Sexual orientation: Straight/Heterosexual Gender identity: Female Cognitive needs: No Hearing needs: No Vision needs: No (reading glasses) Female Reproductive History Menstrual Age of Menarche: 12 Review of Systems Const Denies weight gain and Denies weight loss ENT Reports no additional complaints, Denies dysphagia and Denies odynophagia Card Reports no additional complaints Resp Reports no additional complaints GI Denies abdominal pain, Denies belching, Denies melena, Denies bloating, Denies change in bowel habits, Denies dysphagia, Denies excessive flatus, Denies dyspepsia, Reports heartburn, Denies diarrhea, Denies loose stools, Denies nausea, Denies odynophagia and Denies vomiting Reports no additional complaints Musc Reports no additional complaints Neuro Reports no additional complaints Psych Reports no additional complaints Endo Reports no additional complaints Physical Exam Vital Signs: Last Vital Signs Pulse 73 08/16/23 11:54 BP 113/76 08/16/23 11:54 BMI result Body Mass Index 26.3 Const General: healthy appearing, no acute distress and well developed Nutritional Appearance: well nourished Orientation/consciousness: patient oriented x3 HEENT Head: Yes normal to inspection, Yes normocephalic and Yes atraumatic Face and sinus: Yes normal facial exam Mouth: Normal oral and palatal mucosa present Throat: Yes posterior oropharynx normal, Yes tonsils normal and Yes uvula midline Eyes General: appearance normal, both eyes and all related structures Neck Neck: Yes normal visual inspection, Yes full ROM and Yes trachea midline Thyroid: Thyroid normal Resp Effort & Inspection: normal respiratory effort, able to speak in complete sentences, no tracheal deviation and symmetric chest movement Auscultation: clear to auscultation bilaterally Cardio Rate: regular rate Heart sounds: S1 normal heart sound present, S2 normal heart sound present, no gallops and no murmurs GI Inspection: Yes normal to inspection, No distended and Yes obesity Palpation (GI): Soft to palpation, not firm, nontender and No hepatosplenomegaly present Auscultation: normal bowel sounds General: Yes no CVA tenderness Back/Spine/Pelvis Back: no CVA tenderness Skin General skin exam: elasticity normal, turgor normal and dry skin Neuro General: patient oriented x3 Psych Appearance: grossly normal Mental Status: mental status grossly normal Speech and movement: Normal speech and movement present Affect: normal affect Attitude: cooperative Thought process: Normal thought process present Thought content: Normal thought content present Insight: Good insight present (Psych) Judgement: Good judgement present (Psych) Assessment & Plan Assessment & Plan (1) GERD (gastroesophageal reflux disease): Code(s): K21.9 - Gastro-esophageal reflux disease without esophagitis Category: Medical Qualifiers: Esophagitis presence: esophagitis presence not specified Qualified Code(s): K21.9 - Gastro-esophageal reflux disease without esophagitis Plan Significant weight loss with the semaglutide. Patient seemed to be doing well and no side effects continue pantoprazole. Continue avoiding dietary triggers. Colonoscopy in 10 years, sooner if clinically necessary. Upper endoscopy showed no H pylori, no Barretts, minimal chronic inflammation. Patient will return to the office in 6 months, sooner on as needed basis. She is agreeable to this plan and verbalizes understanding of instructions. She was given the opportunity to ask questions and all questions answered. Thank you for allowing me to participate in her care Coding Level of Care Code Est Pt Level 3 (47061) Diagnoses Gastroesophageal reflux disease, unspecified whether esophagitis present K21.9 Esophagitis presence: esophagitis presence not specified Time Spent (min) 30 Comment 20 minutes spent with patient and additional 10 minutes spent reviewing her records
[2023-08-16 11:54] VITALS: BP 113/76; PULSE 73; BMI 26.3
== END 2023-08-16 12:11 | disposition home or self-care (01) ==
PROVIDERS: PCP Family Medicine; Visit Provider Nurse Practitioner Family
DX: K21.9 Gastro-esophageal reflux disease without esophagitis (principal)
CPT/HCPCS: 99213

== ENCOUNTER → 2023-08-16 11:08 | Outpatient (BNVA) | payer BC, SELFPAY | PROVIDERS: PCP Family Medicine; Visit Provider Nurse Practitioner Family ==

== ENCOUNTER 2023-09-18 13:25 | Outpatient (REF) | payer BC, SELFPAY ==
[2023-09-18 14:53] LABS: Appearance Urine Clear; Color Urine Dark Yellow; Glucose Urine UA Negative (Negative); Leukocyte Esterase Urine Small (1+) (Negative); Nitrite Urine Positive (Negative); PH 6.5 (5.0-9.0); Specific Gravity - Urine <= 1.005 (1.005-1.025); UMIC TRIGGER UA YES; Urine Blood Moderate (2+) (Negative); Urine Ketones Negative (Negative); Urine Protein Negative (Neg-Trace)
[2023-09-18 15:11] LABS: Anion Gap 11 (12-20)
[2023-09-18 15:11] LABS: Bacteria Urine 3+ (None Seen); Hyaline Casts Urine 0-2 /LPF (0-2); RBC Urine 0-2 /HPF (0-2)
[2023-09-18 15:12] LABS: Alanine Aminotransferase 19 U/L (0-31); Albumin Level 4.4 g/dL (3.5-5.0); Alkaline Phosphatase 78 U/L (39-117); Aspartate Amino Transferase 15 U/L (5-31); Blood Urea Nitrogen 9 mg/dL (9-16); Calcium 9.5 mg/dL (8.4-10.2); Carbon Dioxide 27 mmol/L (22-29); Chloride 102 mmol/L (96-108); Estimated Glomerular Filt Rate > 60; Glucose Random 76 mg/dL (60-115); Potassium 3.4 mmol/L (3.3-5.1); Sodium 137 mmol/L (135-145); Total Protein 7.3 g/dL (6.5-8.0)
[2023-09-18 15:38] LABS: Bilirubin Total 1.1 mg/dL (0.0-1.0)
== END 2023-09-18 13:26 | disposition home or self-care (01) ==
LOC: HO.WFDLDS 13:25
PROVIDERS: Visit Provider Family Medicine
DX: R30.0 Dysuria (principal); R94.8 Abnormal results of function studies of other organs and systems; R82.79 Other abnormal findings on microbiological examination of urine
CPT/HCPCS: 36415; 80053; 81001; 87086; 87088; 87186

== ENCOUNTER 2023-09-20 11:15 | Outpatient (AMB) | payer BC, SELFPAY ==
[2023-09-20 11:32] VITALS: BP 120/64; PULSE 72; O2SAT 98; BMI 26.4
--- NOTE | 2023-09-20 11:32 | A.OFFPC_ITS ---
Vital Signs 09/20/23 11:32 Height 5 ft 6 in Weight 163 lb 6 oz BMI 26.4 BP 120/64 Blood Pressure Location Lt brachial Position Sitting Pulse 72 Pulse Source Pulse Oximeter Pulse Oximetry (%) 98 Oxygen Delivery Method Room Air Intake Visit Reasons: lab follow up Intake Note: Patient is here to follow up on labs. Allergies Seasonal Allergies Allergy (Mild, Verified 09/20/23 11:33) Itchy Eyes Tobacco use date assessed: 09/20/23 Dental Screening Dental Screen Date: 06/22/23 HPI lab follow up HPI Details 48 y/o female presents to f/u elevated l iver enzymes and weight. Labs were drawn 09/18/23. Reviewed labs with pt. Liver enzymes now within normal range. AST 15, ALT 19. PFSH Medical History Uterine fibroid Cervical cyst Ovarian cyst Fibroid GERD (gastroesophageal reflux disease) High cholesterol Hypertension Asthma (Unknown) Surgical History Hx of colonoscopy History of esophagogastroduodenoscopy (EGD) History of dilatation and curettage Family History Mother HTN (hypertension) Father HTN (hypertension) Unknown Breast cancer Maternal Aunt Liver cancer Breast cancer Paternal Aunt Colon cancer Other Mental health disorder Social History Household Members: Spouse Housing: House Alcohol intake: current Alcohol intake frequency: 0-2 drinks per day Alcohol type: wine Patient Tobacco Use Status: Never used Tobacco e-Cigarette/Vaping Use: Never Used Second Hand Smoke Exposure: No service: No Current occupational status: employed 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 Blake Esteban, Mitzi Gutierrez, Chance Woods and colleagues, with an educational harish from [employer] Review of Systems Const Denies chills, Denies fatigue, Denies fever(s), Denies headache(s) and Denies weakness ENT Denies dizziness and Denies headache(s) Card Denies chest pain, Denies lightheadedness, Denies dyspnea and Denies other (Palpitations) Resp Denies cough, Denies dyspnea, Denies wheezing and Denies other ( shortness of breath) Musc Denies numbness and Denies tingling Neuro Denies dizziness, Denies headache(s), Denies numbness, Denies tingling, Denies paresthesias and Denies weakness Psych Denies anxiety and Denies depression Endo Denies fatigue Aller/Immun Denies wheezing Physical exam (Primary Care) Vital Signs: Last Vital Signs Pulse 72 09/20/23 11:32 BP 120/64 09/20/23 11:32 Pulse Ox 98 09/20/23 11:32 Oxygen Delivery Method Room Air 09/20/23 11:32 BMI result Body Mass Index 26.4 Tobacco/Smoking Status: Tobacco use Status Tobacco use date assessed 09/20/23 09/20/23 11:35 Patient Tobacco Use Status Never used Tobacco 09/20/23 11:35 e-Cigarette/Vaping Use Never Used 09/20/23 11:35 Thrive Assessment: Date of Thrive Assessment Date Thrive assessed 06/22/23 09/20/23 11:35 Const General: no acute distress and well developed Nutritional Appearance: well nourished Orientation/consciousness: patient oriented x3 HENMT Head: Yes normocephalic and Yes atraumatic Eyes General: appearance normal, both eyes and all related structures Pupils: Equal, round and reactive pupils present EOM: EOMs intact bilaterally Resp Effort & Inspection: normal respiratory effort Auscultation: clear to auscultation bilaterally Cardio Rate: regular rate Rhythm: regular rhythm Heart sounds: S1 normal heart sound present, S2 normal heart sound present, no gallops, no murmurs and no rubs Neuro General: patient oriented x3 and gait normal Cranial nerves: Yes Equal, round and reactive pupils present Psych Affect: normal affect Assessment and Plan Assessment & Plan (1) Elevated liver enzymes: Code(s): R74.8 - Abnormal levels of other serum enzymes Plan: This?has?resolved?with?weight?loss Encouraged?further/ongoing?weight?loss (2) Essential hypertension: Code(s): I10 - Essential (primary) hypertension Plan: Blood?pressure?is?controlled.??Goal?is?less?than?140/90 Continue?current?medication (3) Dysuria: Code(s): R30.0 - Dysuria Plan: Urine?culture?had?confirmed?UTI.??Patient?had?been?started?on?Bactrim?and?sensi tivities?showed?a?good?match Finished?all?medication?and?is?feeling?better Encouraged?her?to?continue?hydrating She?will?let?me?know?if?not?fully?resolved?or symptoms?return. Coding Level of Care Code Est Pt Level 4 (85172) Diagnoses Elevated liver enzymes R74.8 Essential hypertension I10 Dysuria R30.0
== END 2023-09-20 12:13 | disposition home or self-care (01) ==
PROVIDERS: PCP Family Medicine; Visit Provider Family Medicine
DX: R74.8 Abnormal levels of other serum enzymes (principal); I10 Essential (primary) hypertension; R30.0 Dysuria
CPT/HCPCS: 99214

== ENCOUNTER 2023-11-08 10:27 | Outpatient (REF) | payer BC, SELFPAY ==
--- NOTE | ~2023-11-08 | US_ITS ---
EXAMINATION: US PELVIS COMPLETE CLINICAL INFORMATION: Benign neoplasm of connective and other soft tissue, unspecified; the last menstrual period was 8 weeks prior. COMPARISON: Pelvic ultrasound dated 04/26/2023. TECHNIQUE: Transabdominal and transvaginal imaging were performed. FINDINGS: The uterus is of normal size and echogenicity, measuring 10.5 x 4.1 x 4.9 cm. The uterus is anteverted and anteflexed. An intrauterine device is seen, probably situated within the endometrial canal. A regular homogeneous endometrium is identified measuring 1.0 cm. FIBROIDS: There are 3 fibroids seen. 1. Location: Fundal, myometrial. Size: 1.7 x 1.4 x 1.4 cm. Prior: 1.2 x 1.3 x 1.3 cm. Fibroid characteristics: Heterogeneously hypoechoic. 2. Location: Lower posterior body, myometrial. Size: 1.4 x 1.1 x 1.1 cm. Prior: 1.0 x 1.0 x 1.0 cm. Fibroid characteristics: Heterogeneously hypoechoic. 3. Location: Upper posterior body, myometrial. Size: 1.3 x 1.3 x 1.3 cm. Prior: None seen Fibroid characteristics: Heterogeneous echotexture. Both ovaries are of normal size and echogenicity. [The ovaries show normal doppler flow.] The right ovary measures 3.7 x 1.8 x 2.8 cm for a volume of 9.8 mL. The right ovary contains a 2.0 cm benign, simple physiologic follicle, for which no imaging follow-up is recommended. The left ovary measures 2.4 x 1.6 x 2.0 cm for a volume of 4.0 mL. There is no pelvic free fluid. No adnexal mass is seen. US/US pelvic and transvaginal IMPRESSION: 1. Uterine fibroids are seen, as detailed. 2. An intrauterine device is seen, properly situated within the endometrial canal. Electronically signed by: Ivan Knox MD 11/27/2023 10:35 PM EDT
== END 2023-11-08 10:28 | disposition home or self-care (01) ==
LOC: HO.US 10:27
PROVIDERS: PCP Family Medicine; Visit Provider Advanced Practice Midwife
DX: D25.9 Leiomyoma of uterus, unspecified (principal)
CPT/HCPCS: 76830; 76856

== ENCOUNTER 2024-01-17 10:38 | Outpatient (AMB) | payer BC, SELFPAY ==
--- NOTE | 2024-01-17 10:52 | MHC.PC.OV ---
Vital Signs 01/17/24 10:54 Height 5 ft 6 in Weight 164 lb 2 oz BMI 26.5 BP 138/80 Blood Pressure Location Rt brachial Position Sitting Respiration 14 Pulse 71 Pulse Source Pulse Oximeter Temp 98.8 F Temp Source Temporal Artery Scan Pulse Oximetry (%) 99 Oxygen Delivery Method Room Air Intake Visit Reasons: F/U HTN, CHRONIC CONDITIONS Intake Note: F/U chronic conditions and lower back pain Allergies Seasonal Allergies Allergy (Mild, Verified 01/17/24 10:52) Itchy Eyes Medication List - Last Reconciled 01/17/24 by Rajan Moraes MD albuterol sulfate 90 mcg/actuation 2 puffs PO Q4H PRN 30 days clindamycin-benzoyl peroxide 1.2 %(1 % base) -5 % 1 appl topical DAILY levonorgestrel (Mirena) intrauterine lisinopril-hydrochlorothiazide 20-12.5 mg 1 tab PO DAILY 90 days montelukast 10 mg PO DAILY pantoprazole 40 mg PO QAM polyethylene glycol 3350 (Miralax) 238 grams PO ONCE 1 day semaglutide (weight loss) 1 mg subcut QWEEK Symbicort 160-4.5 mcg/actuation (budesonide-formoterol) 2 puffs inhalation BID NS Tobacco use date assessed: 09/20/23 Dental Screening Dental Screen Date: 06/22/23 HPI F/U HTN, CHRONIC CONDITIONS HPI Details 49 y/o female presents to f/u hypertension, chronic conditions. Blood pressure today 138/80, 71p. She is on lisinopril-hydrochlorothiazide 20-12.5mg daily. Notes she has not been taking semaglutide much due to cost/the med causing her constipation. Has complaints of low back pain x6 weeks. [facility] Medical History Uterine fibroid Cervical cyst Ovarian cyst Fibroid GERD (gastroesophageal reflux disease) High cholesterol Hypertension Asthma (Unknown) Surgical History Hx of colonoscopy History of esophagogastroduodenoscopy (EGD) History of dilatation and curettage Family History Mother HTN (hypertension) Father HTN (hypertension) Unknown Breast cancer Maternal Aunt Liver cancer Breast cancer Paternal Aunt Colon cancer Other Mental health disorder Social History Household Members: Spouse Housing: House Alcohol intake: current Alcohol intake frequency: 0-2 drinks per day Alcohol type: wine Patient Tobacco Use Status: Never used Tobacco e-Cigarette/Vaping Use: Never Used Second Hand Smoke Exposure: No service: No Current occupational status: employed 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 1. Little interest or pleasure in doing things: not at all 2. Feeling down, depressed, or hopeless: not at all 3. Trouble falling or staying asleep, or sleeping too much: several days 4. Feeling tired or having little energy: several days 5. Poor appetite or overeating: not at all 6. Feeling bad about yourself - or that you are a failure or have let yourself or your family down: not at all 7. Trouble concentrating on things, such as reading the newspaper or watching television: several days 8. Moving or speaking so slowly that other people could have noticed. Or the opposite - being so fidgety or restless that you have been moving around a lot more than usual: not at all 9. Thoughts that you would be better off or of hurting yourself in some way: not at all Total score: 3 Source: Developed by Drs. Blake Esteban, Mitzi Gutierrez, Chance Woods and colleagues, with an educational harish from [employer]. Thrive Questionnaire Date Thrive assessed: 06/22/23 I am a: Patient What is your living situation today?: I have a steady place to live Within the past 12 months, did the food you bought not last and you didn't have the money to get more?: Never true Within the past 12 months, did you worry whether your food would run out before you got money to buy more?: Never true Do you have trouble paying for medicines?: No Do you have trouble getting transportation to medical appointments?: No Do you have trouble paying your heating and electricity bill?: No Do you have trouble taking care of your child, family member or friend?: No Do you have trouble with day-to-day activities such as bathing, preparing meals, shopping, managing finances, etc.?: No Are you currently unemployed and looking for a job?: No Are you interested in more education?: No Please select the resources that you would like help with: None Currently or been in a relationship where the following occur: No concerns reported THRIVE Score: 0 AUDIT C Alcohol Use Questionnaire (AUDIT-C) 1. How often do you have a drink containing alcohol?: 4 or more times a week 2. How many drinks containing alcohol do you have on a typical day when you are drinking?: 1 or 2 3. How often do you have six or more drinks on one occasion?: Less than monthly Total Score: 5 CHEKO-7 AMB Questionnaire CHEKO-7 Date CHEKO - 7 assessed: 06/22/23 Feeling nervous, anxious, or on edge: 0 = Not at all Not being able to stop or control worryin = Not at all Worrying too much about different things: 0 = Not at all Trouble relaxin = Several days Being so restless that it is hard to sit still: 0 = Not at all Becoming easily annoyed or irritable: 1 = Several days Feeling afraid as if something awful might happen: 0 = Not at all Total CHEKO-7 score (0-4 normal; 5-9 mild; 10-14 moderate; 15-21 severe): 2 Source: Developed by Drs. Blake Esteban, Mitzi Gutierrez, Chance Woods and colleagues, with an educational harish from [employer]. Review of Systems Const Denies chills, Denies fatigue, Denies fever(s), Denies headache(s) and Denies weakness ENT Denies dizziness and Denies headache(s) Card Denies dyspnea Resp Denies cough, Denies dyspnea, Denies wheezing and Denies other (shortness of breath) Musc Reports back pain, Denies numbness and Denies tingling Neuro Denies dizziness, Denies headache(s), Denies numbness, Denies tingling and Denies weakness Psych Denies anxiety and Denies depression Endo Denies fatigue Aller/Immun Denies wheezing Physical exam (Primary Care) Vital Signs: Last Vital Signs Temp 98.8 F 01/17/24 10:54 Pulse 71 01/17/24 10:54 Resp 14 01/17/24 10:54 BP 138/80 01/17/24 10:54 Pulse Ox 99 01/17/24 10:54 Oxygen Delivery Method Room Air 01/17/24 10:54 BMI result Body Mass Index 26.5 Tobacco/Smoking Status: Tobacco use Status Tobacco use date assessed 09/20/23 01/17/24 10:57 Patient Tobacco Use Status Never used Tobacco 01/17/24 10:57 e-Cigarette/Vaping Use Never Used 01/17/24 10:57 PHQ-9: PHQ-9 Score PHQ-9: Total score 3 01/17/24 11:08 Thrive Assessment: Date of Thrive Assessment Date Thrive assessed 06/22/23 01/17/24 10:57 Currently or been in a relationship where the following occur: No concerns reported Const General: well developed; No acute distress Nutritional Appearance: well nourished Orientation/consciousness: patient oriented x3 HENMT Head: Yes normocephalic and Yes atraumatic Eyes General: appearance normal, both eyes and all related structures Pupils: Equal, round and reactive pupils present EOM: EOMs intact bilaterally Resp Effort & Inspection: normal respiratory effort Neuro General: patient oriented x3 and gait normal Cranial nerves: Yes Equal, round and reactive pupils present Psych Affect: normal affect Coding Level of Care Code Est Pt Level 3 (38579) Diagnoses Essential hypertension I10 Low back pain M54.50 Obesity E66.9 Assessment & Plan Assessment & Plan (1) Essential hypertension: Code(s): I10 - Essential (primary) hypertension Category: Medical Plan: Blood?pressure?is?controlled.??Goal?is?less?than?140/90 Continue?current?medication (2) Low back pain: Code(s): M54.50 - Low back pain, unspecified Category: Medical Plan: Will?give?her?a?script?for?meloxicam?and?also?cyclobenzaprine?for?likely?muscle?strain?and?spasm Also?use?ice/heat Gentle?stretching?as?improves If?not?improving?or?worsening,?would?check?imaging?of?lumbar?and?sacral?spine?and?start?physical?therapy. (3) Obesity: Code(s): E66.9 - Obesity, unspecified Category: Medical Plan: Patient?has?been?losing?weight?on?semaglutide?which?she?has?been?paying?for?out?of?pocket. Will?try?prescribing?this?for?her Explained?that?if?her?insurance?does?not?cover?it?we?can?try?1?prior?authorization?but?otherwise?would?not?be?able?to?do?much?more?about?that Medications: New semaglutide (weight loss) 1.7 mg (0.75 mL) subcut QWEEK 28 days 3 mL 3RF cyclobenzaprine 10 mg PO BID 10 days PRN 20 tabs 0RF muscle spasm meloxicam 15 mg PO DAILY 30 days 30 tabs 2RF
[2024-01-17 10:54] VITALS: BP 138/80; PULSE 71; RESP 14; TEMP 37.1; O2SAT 99; BMI 26.5
== END 2024-01-17 11:23 | disposition home or self-care (01) ==
PROVIDERS: PCP Family Medicine; Visit Provider Family Medicine
DX: I10 Essential (primary) hypertension (principal); M54.50 Low back pain, unspecified; E66.9 Obesity, unspecified; Z68.26 Body mass index [BMI] 26.0-26.9, adult

== ENCOUNTER → 2024-01-17 10:38 | Outpatient (BNVA) | payer BC, SELFPAY | PROVIDERS: PCP Family Medicine; Visit Provider Family Medicine ==

== ENCOUNTER 2024-01-24 15:19 | Outpatient (AMB) | payer BC, SELFPAY ==
--- NOTE | 2024-01-24 15:22 | MHC.OFFVIS ---
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 She is doing well with no concerns. Attempting to eat a healthy diet with calcium and vitamin D and stays active with exercise. Currently sexually active. No bleeding with the Mirena. STI testing offered; she declined. History of fibroids. Last pap smear; 2019. Last mammogram; 2022. Colonoscopy is UTD. Denies any family history of breast, ovarian or colon cancer. [facility] Medical History Uterine fibroid Cervical cyst Ovarian cyst Fibroid GERD (gastroesophageal reflux disease) High cholesterol Hypertension Asthma (Unknown) Surgical History Hx of colonoscopy History of esophagogastroduodenoscopy (EGD) History of dilatation and curettage Family History Mother HTN (hypertension) Father HTN (hypertension) Unknown Breast cancer Maternal Aunt Liver cancer Breast cancer Paternal Aunt Colon cancer Other Mental health disorder Social History Household Members: Spouse Housing: House Alcohol intake: current Alcohol intake frequency: 0-2 drinks per day Alcohol type: wine Patient Tobacco Use Status: Never used Tobacco e-Cigarette/Vaping Use: Never Used Second Hand Smoke Exposure: No service: No Current occupational status: employed 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 occupational 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: No Sexual orientation: Straight/Heterosexual Gender identity: Female Cognitive needs: No Hearing needs: No Vision needs: No (reading glasses) Female Reproductive History Menstrual Age of Menarche: 12 control method: progestin IUCD (Mirena 05/03/23) and other (vasectomy) Total pregnancies: 3 Full term: 2 Number of Living Children: 2 Ab induced: 1 Date of last pap smear: 12/09/19 (neg pap and hpv) Date of Mammogram: 03/15/23 (Birad 1) Review of Systems Const All systems reviewed & are unremarkable except as noted in HPI and below Reports as per HPI Eyes Reports no additional complaints ENT Reports no additional complaints Card Reports no additional complaints Resp Reports no additional complaints GI Reports as per HPI and Reports no additional complaints Reports as per HPI Musc Reports no additional complaints Skin/Breast Reports as per HPI Neuro Reports no additional complaints Psych Reports no additional complaints Endo Reports no additional complaints [place]/Lymph Reports no additional complaints Aller/Immun Reports no additional complaints Physical Exam Vital Signs: Last Vital Signs BP 130/80 01/24/24 15:23 BMI result Body Mass Index 27.0 Const General: cooperative, healthy appearing, no acute distress, well developed and alert Orientation/consciousness: patient oriented x3 HEENT Head: Yes normal to inspection Eyes General: appearance normal, both eyes and all related structures Neck Neck: Yes normal visual inspection Thyroid: Thyroid normal Chest Chest palpation & inspection: normal inspection of the chest and other (no puckering, dimpling, peau de orange, retraction, discharge, masses) Breast/axilla inspection: normal inspection of the breasts Breast/axilla palpation: normal palpation of the breasts Resp Effort & Inspection: normal respiratory effort GI Inspection: Yes normal to inspection Palpation (GI): Soft to palpation Rectal Exam - Female: deferred General: Yes bladder normal to palpation External Female Exam: normal external appearance and normal appearance of the urethra Speculum Exam - Vagina: normal appearance of the vagina, normal palpation and normal vaginal discharge Speculum Exam - Cervix: normal appearance of the cervix, normal palpation and Other cervical findings present (IUD strings at the os) Bimanual exam- vagina & uterus: normal bimanual exam, normal palpation, uterine size normal, bladder normal to palpation, normal palpation and non-tender Bimanual Exam- Adnexa, other: no masses Skin General skin exam: no rashes or lesions noted Rashes: no rashes Neuro General: patient oriented x3 Cognition (Neuro): normal cognition Extrem General: Yes normal to inspection Psych Attitude: cooperative Thought process: Normal thought process present Results Reviewed Results Reviewed: [address] [address] Ultrasound Report Signed Patient: Jeanne Jimenez MR#: [id number] : 1975 Acct:[id number] Age/Sex: 48 / F ADM Date: 11/08/23 Loc: HO.US Attending Dr: Tierney Bone CNM Ordering Physician: Tierney Bone CNM Date of Service: 11/08/23 Procedure(s): US pelvic and transvaginal Accession Number(s): [id number] cc: Rajan Moraes MD; Tierney Bone CNM~ EXAMINATION: US PELVIS COMPLETE CLINICAL INFORMATION: Benign neoplasm of connective and other soft tissue, unspecified; the last menstrual period was 8 weeks prior. COMPARISON: Pelvic ultrasound dated 04/26/2023. TECHNIQUE: Transabdominal and transvaginal imaging were performed. FINDINGS: The uterus is of normal size and echogenicity, measuring 10.5 x 4.1 x 4.9 cm. The uterus is anteverted and anteflexed. An intrauterine device is seen, probably situated within the endometrial canal. A regular homogeneous endometrium is identified measuring 1.0 cm. FIBROIDS: There are 3 fibroids seen. 1. Location: Fundal, myometrial. Size: 1.7 x 1.4 x 1.4 cm. Prior: 1.2 x 1.3 x 1.3 cm. Fibroid characteristics: Heterogeneously hypoechoic. 2. Location: Lower posterior body, myometrial. Size: 1.4 x 1.1 x 1.1 cm. Prior: 1.0 x 1.0 x 1.0 cm. Fibroid characteristics: Heterogeneously hypoechoic. 3. Location: Upper posterior body, myometrial. Size: 1.3 x 1.3 x 1.3 cm. Prior: None seen Fibroid characteristics: Heterogeneous echotexture. Both ovaries are of normal size and echogenicity. [The ovaries show normal doppler flow.] The right ovary measures 3.7 x 1.8 x 2.8 cm for a volume of 9.8 mL. The right ovary contains a 2.0 cm benign, simple physiologic follicle, for which no imaging follow-up is recommended. The left ovary measures 2.4 x 1.6 x 2.0 cm for a volume of 4.0 mL. There is no pelvic free fluid. No adnexal mass is seen. US/US pelvic and transvaginal IMPRESSION: 1. Uterine fibroids are seen, as detailed. 2. An intrauterine device is seen, properly situated within the endometrial canal. Electronically signed by: Ivan Knox MD 11/27/2023 10:35 PM EDT RP Workstation: [id number] Dictated By: Ivan Knox MD Signed By: <Electronically signed by Ivan Knox MD in OV> 11/27/23 2235 DD/ 1100 TD/TT: 11/08/23 1120 [facility] Director: WILLIAM Assessment & Plan Assessment & Plan (1) Encounter for well woman exam with routine gynecological exam: Code(s): Z01.419 - Encounter for gynecological examination (general) (routine) without abnormal findings Category: Medical (2) Fibroid: Code(s): D21.9 - Benign neoplasm of connective and other soft tissue, unspecified Category: Medical (3) Encounter to discuss test results: Code(s): Z71.2 - Person consulting for explanation of examination or test findings (4) Uterine fibroid: Code(s): D25.9 - Leiomyoma of uterus, unspecified Category: Medical Plan Discussed: Current recommendations for pap smears per ASCCP guidelines. Breast awareness, periodic self breast exams and yearly mammogram. Maintain a healthy lifestyle, well balanced diet including Calcium 1,200 mg and Vitamin D 600 IU daily, and routine exercise. Ultrasound results: Pre fibroids slightly increased in size with 2, 1 new fibroid noted. Benign ovarian cyst. Counseled re: Leiomyoma: common pelvic neoplasm. Differential diagnosis-may include but not limited to- leiomyosarcoma which is a rare uterine sarcoma 3-7/100,000, difficult to distinguish from fibroids on ultrasound from uterine sarcoma's. Unlikely any single test will have a highly positive predictive value. Hysterectomy is not recommended for sole purpose of excluding malignant neoplasm. Consult for surgical exploration, medical treatment, other treatments, verses expectant management, pros and cons, risks and benefits. Expectant management follow up in 6 months, then yearly for stability. Ultrasound follow up in 06/13/2024 follow up in person or tele visit for results. Report any AUB, pelvic pressure, bloating, or pain. Referral to MD if indicated for level of care if indicated. Patient verbalizes understanding and agrees to the plan of care. She was given opportunity to ask questions and all questions were answered to the best of my ability. RTO in 1 year for annual manager it security exam. This note is constructed using voice recognition software. While every effort has been made to ensure accuracy, hat measurer errors may have been included. Orders: Orders US pelvic and transvaginal 05/27/24 D25.9 - Leiomyoma of uterus, unspecified Coding Level of Care Code Est Pt Prev Care 40-64y(49502) Diagnoses Encounter for well woman exam with routine gynecological exam Z01.419 Fibroid D21.9 Encounter to discuss test results Z71.2 Uterine fibroid D25.9
[2024-01-24 15:23] VITALS: BP 130/80; BMI 27.0
== END 2024-01-24 15:59 | disposition home or self-care (01) ==
LOC: HO.HWS 15:19
PROVIDERS: PCP Family Medicine; Visit Provider Advanced Practice Midwife
DX: Z01.419 Encounter for gynecological examination (general) (routine) without abnormal findings (principal); D25.9 Leiomyoma of uterus, unspecified
CPT/HCPCS: 99396

== ENCOUNTER → 2024-01-24 15:19 | Outpatient (BNVA) | payer BC, SELFPAY | PROVIDERS: PCP Family Medicine; Visit Provider Advanced Practice Midwife ==

== ENCOUNTER 2024-04-03 11:17 | Outpatient (REF) | payer BC, SELFPAY ==
--- NOTE | ~2024-04-03 | MM_ITS ---
EXAMINATION: MM SCREENING DIGITAL BREAST TOMOSYNTHESIS, BILATERAL CLINICAL INFORMATION: Screening. Asymptomatic. COMPARISON: Mammography: Comparison is made with available priors TECHNIQUE: Digital breast mammography with tomosynthesis is performed in both the craniocaudal and mediolateral oblique views along with computer-aided detection (CAD). FINDINGS: The breasts are heterogeneously dense, which may obscure small masses (ACR BI-RADS breast composition Category c). There are no significant masses, abnormal calcifications, or other abnormalities. MM/MM tomosynthesis screening BI IMPRESSION: No mammographic evidence of malignancy. ASSESSMENT: BI-RADS BI-RADS 1 - Negative RECOMMENDATION: Routine annual mammography screening. 1 year F/U This examination should not preclude the clinical evaluation of a suspicious palpable abnormality. This patient's information was entered into a reminder system with a target due date for their next mammogram. Electronically signed by: Jordana Rivers DO 04/09/2024 05:42 PM [facility] [place]
== END 2024-04-03 11:18 | disposition home or self-care (01) ==
LOC: HO.MAMMO 11:17
PROVIDERS: PCP Family Medicine; Visit Provider Family Medicine
DX: Z12.31 Encounter for screening mammogram for malignant neoplasm of breast (principal)
CPT/HCPCS: 77063; 77067

== ENCOUNTER → 2024-04-03 11:30 | Outpatient (BNV) | payer BC, SELFPAY | PROVIDERS: PCP Family Medicine; Visit Provider Internal Medicine | DX: Z12.31 Encounter for screening mammogram for malignant neoplasm of breast (principal) | CPT/HCPCS: 77063; 77067 ==

== ENCOUNTER 2024-05-15 10:43 | Outpatient (REF) | payer BC, SELFPAY ==
--- NOTE | ~2024-05-15 | US_ITS ---
EXAMINATION: US PELVIS CLINICAL INFORMATION: Fibroids. Follow-up exam. COMPARISON: 11/08/2023. TECHNIQUE: Ultrasound of the pelvis is performed using both transabdominal and transvaginal transducers along with Doppler. Transvaginal imaging is performed due to inadequate visualization transabdominally. FINDINGS: Uterus: The uterus is anteverted and measures 8.7 x 5.2 x 5.8 cm. The cervix is normal in appearance. The double wall endometrial thickness is 7 mm. IUD is in place with good positioning. The uterus is smooth in contour and has heterogeneous myometrial echogenicity. There are numerous small fibroids. -A right intramural fundal fibroid measures 2.1 x 2.0 x 1.8 cm (previously 1.7 x 1.4 x 1.4 cm). -A smaller right fundal intramural fibroid measures 1.6 x 1.2 x 1.9 cm (previously 1.4 x 1.1 x 1.1 cm). -A small left mid uterine segment subserosal fibroid measures 0.9 x 0.7 x 0.6 cm (previously not identified). -There are approximately 4 subcentimeter tiny submucosal fibroids abutting the ventral and dorsal endometrium (refer to image 75). Adnexa: Both ovaries are visualized. There is normal color flow to the adnexa. There is no ovarian torsion. There is no pelvic ascites or fluid collection. There are no adnexal masses present. Right ovary measures 2.7 x 2.4 x 2.1 cm. Volume = 7.1 mL. Normal sonographic appearance. Left ovary measures 2.6 x 1.8 x 2.3 cm. Volume = 4.9 mL. Normal sonographic appearance. US/US pelvic and transvaginal IMPRESSION: 1. Numerous fibroid tumors, of which the largest 3 are slightly larger compared with the prior exam. Of note, there are approximately 4 subcentimeter submucosal fibroids. 2. Normal endometrial thickness. Appropriately situated IUD. 3. Normal ovaries bilaterally. Electronically signed by: Romario Noble MD 05/16/2024 08:46 AM [facility] Workstation: [id number]
== END 2024-05-15 10:44 | disposition home or self-care (01) ==
LOC: HO.US 10:43
PROVIDERS: PCP Family Medicine; Visit Provider Advanced Practice Midwife
DX: D25.9 Leiomyoma of uterus, unspecified (principal)
CPT/HCPCS: 76830; 76856

== ENCOUNTER → 2024-05-15 10:46 | Outpatient (BNV) | payer BC, SELFPAY | PROVIDERS: PCP Family Medicine; Visit Provider Radiology Diagnostic Radiology | DX: D25.9 Leiomyoma of uterus, unspecified (principal) | CPT/HCPCS: 76830; 76856 ==

== ENCOUNTER 2024-06-12 13:02 | Outpatient (AMB) | payer BC, SELFPAY ==
--- NOTE | 2024-06-12 13:03 | A.OFFVIS_ITS ---
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 Time spent included review of pertinent office notes in the electronic health record; review of laboratory and imaging results; review of personal family medical history; discussing diagnosis and plan of care with the patient; do cumenting the encounter in the EMR. Patient presents to discuss: Ultrasound findings. History of multiple fibroids. History of Mirena IUD in place. She denies any bleeding or pelvic pain. Reports occasional pressure discomfort with the intimacy. [facility] Medical History Uterine fibroid Cervical cyst Ovarian cyst Fibroid GERD (gastroesophageal reflux disease) High cholesterol Hypertension Asthma (Unknown) Surgical History Hx of colonoscopy History of esophagogastroduodenoscopy (EGD) History of dilatation and curettage Family History Mother HTN (hypertension) Father HTN (hypertension) Unknown Breast cancer Maternal Aunt Liver cancer Breast cancer Paternal Aunt Colon cancer Other Mental health disorder Social History Household Members: Spouse Housing: House Alcohol intake: current Alcohol intake frequency: 0-2 drinks per day Alcohol type: wine Patient Tobacco Use Status: Never used Tobacco e-Cigarette/Vaping Use: Never Used Second Hand Smoke Exposure: No service: No Current occupational status: employed 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 occupational 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: No Sexual orientation: Straight/Heterosexual Gender identity: Female Cognitive needs: No Hearing needs: No Vision needs: No (reading glasses) Female Reproductive History Menstrual Age of Menarche: 12 Review of Systems Const All systems reviewed & are unremarkable except as noted in HPI and below Endo Reports no additional complaints Physical Exam Const General: cooperative, healthy appearing and no acute distress Psych Appearance: well kempt Attitude: cooperative Thought process: Normal thought process present Telehealth Telehealth [facility]health [facility] Location of provider rendering services: practice address Location of patient: address on file Patient Identification confirmed using: Name, : Yes Telehealth method: video Patient verbally consented to treatment: Yes Patient verbally consented to billing insurance company: Yes Patient informed of any privacy concerns related to visit: Yes Results Reviewed Results Reviewed: [address] [address] Ultrasound Report Signed Patient: Jeanne Jimenez MR#: [id number] : 1975 Acct:[id number] Age/Sex: 49 / F ADM Date: 05/15/24 Loc: HO.US Attending Dr: Tierney Bone CNM Ordering Physician: Tierney Bone CNM Date of Service: 05/15/24 Procedure(s): US pelvic and transvaginal Accession Number(s): [id number] cc: Rajan Moraes MD; Tierney Bone CNM~ EXAMINATION: US PELVIS CLINICAL INFORMATION: Fibroids. Follow-up exam. COMPARISON: 11/08/2023. TECHNIQUE: Ultrasound of the pelvis is performed using both transabdominal and transvaginal transducers along with Doppler. Transvaginal imaging is performed due to inadequate visualization transabdominally. FINDINGS: Uterus: The uterus is anteverted and measures 8.7 x 5.2 x 5.8 cm. The cervix is normal in appearance. The double wall endometrial thickness is 7 mm. IUD is in place with good positioning. The uterus is smooth in contour and has heterogeneous myometrial echogenicity. There are numerous small fibroids. -A right intramural fundal fibroid measures 2.1 x 2.0 x 1.8 cm (previously 1.7 x 1.4 x 1.4 cm). -A smaller right fundal intramural fibroid measures 1.6 x 1.2 x 1.9 cm (previously 1.4 x 1.1 x 1.1 cm). -A small left mid uterine segment subserosal fibroid measures 0.9 x 0.7 x 0.6 cm (previously not identified). -There are approximately 4 subcentimeter tiny submucosal fibroids abutting the ventral and dorsal endometrium (refer to image 75). Adnexa: Both ovaries are visualized. There is normal color flow to the adnexa. There is no ovarian torsion. There is no pelvic ascites or fluid collection. There are no adnexal masses present. Right ovary measures 2.7 x 2.4 x 2.1 cm. Volume = 7.1 mL. Normal sonographic appearance. Left ovary measures 2.6 x 1.8 x 2.3 cm. Volume = 4.9 mL. Normal sonographic appearance. US/US pelvic and transvaginal IMPRESSION: 1. Numerous fibroid tumors, of which the largest 3 are slightly larger compared with the prior exam. Of note, there are approximately 4 subcentimeter submucosal fibroids. 2. Normal endometrial thickness. Appropriately situated IUD. 3. Normal ovaries bilaterally. 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 Differential diagnosis-may include but not limited to- leiomyosarcoma which is a rare uterine sarcoma 3- 7/100,000, difficult to distinguish from fibroids on ultrasound from uterine sarcoma's. Unlikely any single test will have a highly positive predictive value. Hysterectomy is not recommended for sole purpose of excluding malignant neoplasm. Consult for surgical exploration, medical treatment, other treatments, verses expectant management, pros and cons, risks and benefits. Expectant management follow up in 6 months, then yearly for stability. Patient prefers to proceed with expectant management. Report any PMB/AUB, pelvic pressure, bloating, or pain. Referral to MD if indicated for level of care if indicated. (3) Encounter to discuss test results: Code(s): Z71.2 - Person consulting for explanation of examination or test findings Plan Discussed: Ultrasound findings multiple fibroids. The patient expressed understanding and agreement with the plan of care. All of her questions and concerns were addressed to the best of my ability. This note is constructed using voice recognition software. While every effort has been made to ensure accuracy, button broacher errors may have been included. Orders: Orders US pelvic and transvaginal 5 Months D25.9 - Leiomyoma of uterus, unspecified Coding Level of Care Code Tele Est Pt Level 3 (15888) Diagnoses Fibroid D21.9 Uterine fibroid D25.9 Encounter to discuss test results Z71.2
== END 2024-06-12 15:21 | disposition home or self-care (01) ==
LOC: HO.HWS 13:02
PROVIDERS: PCP Family Medicine; Visit Provider Advanced Practice Midwife
DX: D25.9 Leiomyoma of uterus, unspecified (principal); Z71.2 Person consulting for explanation of examination or test findings
CPT/HCPCS: 99213

== ENCOUNTER → 2024-06-12 13:02 | Outpatient (BNVA) | payer BC, SELFPAY | PROVIDERS: PCP Family Medicine; Visit Provider Advanced Practice Midwife ==

== ENCOUNTER 2024-07-17 14:09 | Outpatient (AMB) | payer BC, SELFPAY ==
--- NOTE | 2024-07-17 14:30 | MHC.PC.OV ---
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 Allergies Seasonal Allergies Allergy (Mild, Verified 07/17/24 14:31) Itchy Eyes Medication List - Last Reconciled 07/17/24 by Rajan Moraes MD albuterol sulfate 90 mcg/actuation 2 puffs PO Q4H PRN 30 days levonorgestrel (Mirena) intrauterine lisinopril-hydrochlorothiazide 20-12.5 mg 1 tab PO DAILY 90 days montelukast 10 mg PO DAILY pantoprazole 40 mg PO QAM polyethylene glycol 3350 (Miralax) 238 grams PO ONCE 1 day semaglutide (weight loss) 1.7 mg (0.75 mL) subcut QWEEK 28 days Symbicort 160-4.5 mcg/actuation (budesonide-formoterol) 2 puffs inhalation BID NS Tobacco use date assessed: 09/20/23 Dental Screening Dental Screen Date: 06/22/23 HPI f/u hypertension HPI Details Patient?presents?to?follow-up?hypertension?and?obesity. Taking?lisinopril?hydrochlorothiazide?as?prescribed.??No?problems?with?this?medication. She?checks?her?blood?pressures?at?home?which?are?similar?to?today's?value?of?110/70 This?has?been?improving?with?weight?loss Patient?is?still?taking?Ozempic?which?was?not?covered?by?insurance.??She?continues?to?pay?egn-[id number] No?problems?with?this?medication Also?beginning?to?look?for?ways?to?get?exercise. Breathing?easily.??Asthma?is?controlled?on?inhaled?medications?as?well?as?Singulair. [facility] Medical History Uterine fibroid Cervical cyst Ovarian cyst Fibroid GERD (gastroesophageal reflux disease) High cholesterol Hypertension Asthma (Unknown) Surgical History Hx of colonoscopy History of esophagogastroduodenoscopy (EGD) History of dilatation and curettage Family History Mother HTN (hypertension) Father HTN (hypertension) Unknown Breast cancer Maternal Aunt Liver cancer Breast cancer Paternal Aunt Colon cancer Other Mental health disorder Social History Household Members: Spouse Housing: House Alcohol intake: current Alcohol intake frequency: 0-2 drinks per day Alcohol type: wine Patient Tobacco Use Status: Never used Tobacco e-Cigarette/Vaping Use: Never Used Second Hand Smoke Exposure: No service: No Current occupational status: employed 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 1. Little interest or pleasure in doing things: not at all 2. Feeling down, depressed, or hopeless: not at all 3. Trouble falling or staying asleep, or sleeping too much: several days 4. Feeling tired or having little energy: several days 5. Poor appetite or overeating: not at all 6. Feeling bad about yourself - or that you are a failure or have let yourself or your family down: not at all 7. Trouble concentrating on things, such as reading the newspaper or watching television: not at all 8. Moving or speaking so slowly that other people could have noticed. Or the opposite - being so fidgety or restless that you have been moving around a lot more than usual: not at all 9. Thoughts that you would be better off or of hurting yourself in some way: not at all Total score: 2 Depression Screening Interpretation: Negative Depression Screening Done: Yes 94491 - PHQ-9 Billing: Yes Source: Developed by Drs. Blake Esteban, Mitzi GutierrezChance and colleagues, with an educational harish from [employer]. Thrive Questionnaire Date Thrive assessed: 07/17/24 I am a: Patient What is your living situation today?: I have a steady place to live Within the past 12 months, did the food you bought not last and you didn't have the money to get more?: Never true Within the past 12 months, did you worry whether your food would run out before you got money to buy more?: Never true Do you have trouble paying for medicines?: No Do you have trouble getting transportation to medical appointments?: No Do you have trouble paying your heating and electricity bill?: No Do you have trouble taking care of your child, family member or friend?: No Do you have trouble with day-to-day activities such as bathing, preparing meals, shopping, managing finances, etc.?: No Are you currently unemployed and looking for a job?: No Are you interested in more education?: No Please select the resources that you would like help with: None Currently or been in a relationship where the following occur: No concerns reported THRIVE Score: 0 AUDIT C Alcohol Use Questionnaire (AUDIT-C) 1. How often do you have a drink containing alcohol?: 4 or more times a week 2. How many drinks containing alcohol do you have on a typical day when you are drinking?: 1 or 2 3. How often do you have six or more drinks on one occasion?: Less than monthly Total Score: 5 CHEKO-7 AMB Questionnaire CHEKO-7 Date CHEKO - 7 assessed: 07/17/24 Feeling nervous, anxious, or on edge: 0 = Not at all Not being able to stop or control worryin = Not at all Worrying too much about different things: 0 = Not at all Trouble relaxin = Not at all Being so restless that it is hard to sit still: 0 = Not at all Becoming easily annoyed or irritable: 0 = Not at all Feeling afraid as if something awful might happen: 0 = Not at all Total CHEKO-7 score (0-4 normal; 5-9 mild; 10-14 moderate; 15-21 severe): 0 Source: Developed by Drs. Blake Esteban, Chance Bravo and colleagues, with an educational harish from [employer]. CHEKO-7 Assessment Billing CHEKO-7 Assessment Tool: CHEKO-7 Assessment 83287 Review of Systems Const Denies chills, Denies fatigue, Denies fever(s), Denies headache(s) and Denies weakness ENT Denies dizziness and Denies headache(s) Card Denies chest pain, Denies lightheadedness, Denies dyspnea and Denies other (Palpitations) Resp Denies cough, Denies dyspnea, Denies wheezing and Denies other ( shortness of breath) Musc Denies numbness and Denies tingling Neuro Denies dizziness, Denies headache(s), Denies numbness, Denies tingling, Denies paresthesias and Denies weakness Psych Denies anxiety and Denies depression Endo Denies fatigue Aller/Immun Denies wheezing Physical exam (Primary Care) Vital Signs: Last Vital Signs Temp 98.0 F 07/17/24 14:33 Pulse 79 07/17/24 14:33 Resp 12 07/17/24 14:33 BP 110/70 07/17/24 14:33 Pulse Ox 97 07/17/24 14:33 Oxygen Delivery Method Room Air 07/17/24 14:33 BMI result Body Mass Index 26.3 Tobacco/Smoking Status: Tobacco use Status Tobacco use date assessed 09/20/23 07/17/24 14:35 Patient Tobacco Use Status Never used Tobacco 07/17/24 14:35 e-Cigarette/Vaping Use Never Used 07/17/24 14:35 PHQ-9: PHQ-9 Score PHQ-9: Total score 2 07/17/24 14:35 Depression Screening Interpretation: Negative Thrive Assessment: Date of Thrive Assessment Date Thrive assessed 07/17/24 07/17/24 14:35 Currently or been in a relationship where the following occur: No concerns reported Const General: no acute distress and well developed Nutritional Appearance: well nourished Orientation/consciousness: patient oriented x3 HENMT Head: Yes normocephalic and Yes atraumatic Eyes General: appearance normal, both eyes and all related structures Pupils: Equal, round and reactive pupils present EOM: EOMs intact bilaterally Resp Effort & Inspection: normal respiratory effort Auscultation: clear to auscultation bilaterally Cardio Rate: regular rate Rhythm: regular rhythm Heart sounds: S1 normal heart sound present, S2 normal heart sound present, no gallops, no murmurs and no rubs Neuro General: patient oriented x3 and gait normal Cranial nerves: Yes Equal, round and reactive pupils present Psych Affect: normal affect Coding Level of Care Code Est Pt Level 4 (26410) Diagnoses Essential hypertension I10 Obesity E66.9 Asthma J45.909 Environmental allergies Z91.09 Additional Codes CHEKO-7 Assessment Billing - CHEKO-7 Assessment Tool: CHEKO-7 Assessment 19517 ([id number]) PHQ-9 - 43931 - PHQ-9 Billing: Yes ([id number]) Assessment & Plan Assessment & Plan (1) Essential hypertension: Code(s): I10 - Essential (primary) hypertension Category: Medical Plan: Blood?pressure?is?well?controlled.??Goal?is?less?than?140/90 Continue?current?medication?regimen Monitor?blood?pressures?at?home?and?call?if?any?changes/Problems (2) Obesity: Code(s): E66.9 - Obesity, unspecified Category: Medical Plan: Patient?continues?to?lose?weight?on?Ozempic?which?she?is?being?for?out?of?pocket Insurance?denied?this She?can?continue Will?monitor (3) Asthma: Onset Date: Unknown Code(s): J45.909 - Unspecified asthma, uncomplicated Category: Medical (4) Environmental allergies: Code(s): Z91.09 - Other allergy status, other than to drugs and biological substances Category: Medical Plan Asthma?with?environmental?allergies?trigger Stable?and?controlled Continue?inhaled?medications Continue?Kody-?refilled?today. Medications: Refilled montelukast 10 mg PO DAILY 30 tabs 11RF J45.909 - Unspecified asthma, uncomplicated
[2024-07-17 14:33] VITALS: BP 110/70; PULSE 79; RESP 12; TEMP 36.7; O2SAT 97; BMI 26.3
== END 2024-07-17 14:50 | disposition home or self-care (01) ==
LOC: HO.HMCFM 14:10
PROVIDERS: PCP Family Medicine; Visit Provider Family Medicine
DX: I10 Essential (primary) hypertension (principal); E66.9 Obesity, unspecified; Z68.26 Body mass index [BMI] 26.0-26.9, adult; J45.909 Unspecified asthma, uncomplicated; Z91.09 Other allergy status, other than to drugs and biological substances

== ENCOUNTER → 2024-07-17 14:09 | Outpatient (BNVA) | payer BC, SELFPAY | PROVIDERS: PCP Family Medicine; Visit Provider Family Medicine | DX: I10 Essential (primary) hypertension (principal); J45.909 Unspecified asthma, uncomplicated; E66.9 Obesity, unspecified; Z68.26 Body mass index [BMI] 26.0-26.9, adult; Z79.899 Other long term (current) drug therapy; Z91.09 Other allergy status, other than to drugs and biological substances | CPT/HCPCS: 96127 ==

== ENCOUNTER 2024-11-13 10:22 | Outpatient (REF) | payer BC, SELFPAY ==
--- NOTE | ~2024-11-13 | US_ITS ---
CLINICAL HISTORY: D25.9 - Leiomyoma of uterus, unspecified --- Additional Notes or Special Instructions: Stability check US pelvis transabdominal and transvaginal Comparison: US/MS/SR - US PELVIS TRANSABDOMINAL AND TRANSVAGINAL - 05/15/24 11:16 EST Findings: Transabdominal scanning performed for overall anatomy. Transvaginal scanning performed for additional detail. Anteverted uterus is 9 cm length. Multiple fibroids are again noted. Largest 1 measuring 1.5 x 1.5 x 1.4 cm which is slightly decreased in size within the to the prior study. Endometrium 4 mm thickness. IUD appears to be in correct position. Right ovary 2.7 x 1.4 x 1 cm. Left ovary 2.1 x 1.7 x 2.1 cm. Normal color Doppler of both ovaries. No free fluid. IMPRESSION: 1. Redemonstration of multiple uterine fibroids the largest stone measuring 1.5 cm in maximum dimension, which is slightly decreased in size in the interval, previously 2.7 cm. This document has been electronically signed by: Tyler Perez MD on 11/13/2024 19:52:34
== END 2024-11-13 10:23 | disposition home or self-care (01) ==
LOC: HO.US 10:22
PROVIDERS: PCP Family Medicine; Visit Provider Advanced Practice Midwife
DX: D25.9 Leiomyoma of uterus, unspecified (principal)
CPT/HCPCS: 76830; 76856

== ENCOUNTER → 2024-11-13 10:24 | Outpatient (BNV) | payer BC, SELFPAY | PROVIDERS: PCP Family Medicine; Visit Provider Student in an Organized Health Care Education/Training Program | DX: D25.9 Leiomyoma of uterus, unspecified (principal) | CPT/HCPCS: 76830; 76856 ==

== ENCOUNTER 2024-12-11 08:37 | Outpatient (AMB) | payer BC, SELFPAY ==
--- NOTE | 2024-12-11 08:37 | A.OFFVIS_ITS ---
Intake Visit Reasons: TV ultrasound Follow up Intake Note: cell # [phone] Cotton Baler: Cotton Baler Present Allergies Seasonal Allergies Allergy (Mild, Verified 07/17/24 14:31) Itchy Eyes Is last menstrual period known: Yes HPI Comments Details: Tele Health Visit Total time I personally spent on visit and management today: 13 minutes. Time spent included review of pertinent office notes in the electronic health record; review of laboratory and imaging results; review of personal family medical history; discussing diagnosis and plan of care with the patient; documenting the encounter in the EMR. Patient presents to discuss: Ultrasound findings, history of fibroids. History of Mirena IUD in place. Denies any other concerns today. PFSH Medical History Uterine fibroid Cervical cyst Ovarian cyst Fibroid GERD (gastroesophageal reflux disease) High cholesterol Hypertension Asthma (Unknown) Surgical History Hx of colonoscopy History of esophagogastroduodenoscopy (EGD) History of dilatation and curettage Family History Mother HTN (hypertension) Father HTN (hypertension) Unknown Breast cancer Maternal Aunt Liver cancer Breast cancer Paternal Aunt Colon cancer Other Mental health disorder Social History Household Members: Spouse Housing: House Alcohol intake: current Alcohol intake frequency: 0-2 drinks per day Alcohol type: wine Patient Tobacco Use Status: Never used Tobacco e-Cigarette/Vaping Use: Never Used Second Hand Smoke Exposure: No service: No Current occupational status: employed 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 occupational 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: No Sexual orientation: Straight/Heterosexual Gender identity: Female Cognitive needs: No Hearing needs: No Vision needs: No (reading glasses) Female Reproductive History Menstrual Age of Menarche: 12 Review of Systems Const All systems reviewed & are unremarkable except as noted in HPI and below Endo Reports no additional complaints Physical Exam Const General: cooperative, healthy appearing and no acute distress Psych Appearance: well kempt Attitude: cooperative Thought process: Normal thought process present Telehealth Telehealth Telehealth Platform: [employer] Location of provider rendering services: practice address Location of patient: address on file Patient Identification confirmed using: Name, : Yes Telehealth method: video Patient verbally consented to treatment: Yes Patient verbally consented to billing insurance company: Yes Patient informed of any privacy concerns related to visit: Yes Results Reviewed Results Reviewed: [address] [address] Ultrasound Report Signed Patient: Jeanne Jimenez MR#: [id number] : 1975 Acct:[id number] Age/Sex: 49 / F ADM Date: 11/13/24 Loc: [facility].US Attending Dr: Tierney Bone CNM Ordering Physician: Tierney Bone CNM Date of Service: 11/13/24 Procedure(s): US pelvic and transvaginal Accession Number(s): [id number] cc: Rajan Moraes MD; Tierney Bone CNM~ CLINICAL HISTORY: D25.9 - Leiomyoma of uterus, unspecified --- Additional Notes or Special Instructions: Stability check US pelvis transabdominal and transvaginal Comparison: US/FL/SR - US PELVIS TRANSABDOMINAL AND TRANSVAGINAL - 05/15/24 11:16 EST Findings: Transabdominal scanning performed for overall anatomy. Transvaginal scanning performed for additional detail. Anteverted uterus is 9 cm length. Multiple fibroids are again noted. Largest 1 measuring 1.5 x 1.5 x 1.4 cm which is slightly decreased in size within the to the prior study. Endometrium 4 mm thickness. IUD appears to be in correct position. Right ovary 2.7 x 1.4 x 1 cm. Left ovary 2.1 x 1.7 x 2.1 cm. Normal color Doppler of both ovaries. No free fluid. IMPRESSION: 1. Redemonstration of multiple uterine fibroids the largest stone measuring 1.5 cm in maximum dimension, which is slightly decreased in size in the interval, previously 2.7 cm. This document has been electronically signed by: Tyler Perez MD on 11/13/2024 19:52:34 Dictated By: Tyler Perez MD Signed By: <Electronically signed by Tyler Perez MD in OV> 11/13/241952 DD/ 51 TD/TT: 11/13/241951 General Office Associate: Assessment & Plan Assessment & Plan (1) Uterine fibroid: Code(s): D25.9 - Leiomyoma of uterus, unspecified Category: Medical Qualifiers: Uterine leiomyoma location: unspecified location Qualified Code(s): D25.9 - Leiomyoma of uterus, unspecified Plan Discussed: Ultrasound findings- IMPRESSION: 1. Redemonstration of multiple uterine fibroids the largest stone measuring 1.5 cm in maximum dimension, which is slightly decreased in size in the interval, previously 2.7 cm. IUD seen in proper position. No further monitoring required at this time unless patient reports any unsche duled bleeding patterns, pelvic pain, pressure or other concerns. Annual exam is scheduled. The patient expressed understanding and agreement with the plan of care. All of her questions and concerns were addressed to the best of my ability. This note is constructed using voice recognition software. While every effort has been made to ensure accuracy, child development professor errors may have been included. Coding Level of Care Code Tele Est Pt Level 3 (54177) Diagnoses Uterine leiomyoma, unspecified location D25.9 Uterine leiomyoma location: unspecified location
== END 2024-12-11 15:05 | disposition home or self-care (01) ==
LOC: HO.HWS 08:37
PROVIDERS: PCP Family Medicine; Visit Provider Advanced Practice Midwife
DX: D25.9 Leiomyoma of uterus, unspecified (principal)
CPT/HCPCS: 99213

== ENCOUNTER 2025-01-29 13:41 | Outpatient (AMB) | payer BC, SELFPAY ==
--- NOTE | 2025-01-29 13:44 | A.OFFVIS_ITS ---
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 Cyber Systems Administrator concerns: none. Mirena IUD user. Currently sexually active. Denies any vaginal dryness or irritation. STI testing offered; she declined. Attempting to eat a healthy diet with calcium and vitamin D and stays active with exercise-walks. Last pap smear; 2019, negative. Last mammogram; 2024. Colonoscopy is UTD. Family history of breast, ovarian or colon cancer. [facility] Medical History IUD (intrauterine device) in place Uterine fibroid Fibroid GERD (gastroesophageal reflux disease) High cholesterol Hypertension Asthma (Unknown) Surgical History Hx of colonoscopy History of esophagogastroduodenoscopy (EGD) History of dilatation and curettage Family History Mother HTN (hypertension) Father HTN (hypertension) Unknown Breast cancer Maternal Aunt Liver cancer Breast cancer Paternal Aunt Colon cancer Other Mental health disorder Social History Household Members: Spouse Housing: House Alcohol intake: current Alcohol intake frequency: 0-2 drinks per day Alcohol type: wine Patient Tobacco Use Status: Never used Tobacco e-Cigarette/Vaping Use: Never Used Second Hand Smoke Exposure: No service: No Current occupational status: employed 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 occupational 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: No Sexual orientation: Straight/Heterosexual Gender identity: Female Cognitive needs: No Hearing needs: No Vision needs: No (reading glasses) Female Reproductive History Menstrual Age of Menarche: 12 control method: progestin IUCD (Mirena 04/2023) and other (vasectomy) Total pregnancies: 3 Full term: 2 Number of Living Children: 2 Ab induced: 1 Date of last pap smear: 12/09/19 (neg pap and hpv) Date of Mammogram: 04/03/24 (Birad 1) Review of Systems Const All systems reviewed & are unremarkable except as noted in HPI and below Reports as per HPI Eyes Reports no additional complaints ENT Reports no additional complaints Card Reports no additional complaints Resp Reports no additional complaints GI Reports as per HPI and Reports no additional complaints Reports as per HPI Musc Reports no additional complaints Skin/Breast Reports as per HPI Neuro Reports no additional complaints Psych Reports no additional complaints Endo Reports no additional complaints [place]/Lymph Reports no additional complaints Aller/Immun Reports no additional complaints Physical Exam Vital Signs: Last Vital Signs BP 140/82 H 01/29/25 13:46 BMI result Body Mass Index 30.0 Const General: cooperative, healthy appearing, no acute distress, well developed and alert Orientation/consciousness: patient oriented x3 HEENT Head: Yes normal to inspection Eyes General: appearance normal, both eyes and all related structures Neck Neck: Yes normal visual inspection Thyroid: Thyroid normal Chest Chest palpation & inspection: normal inspection of the chest and other (no puckering, dimpling, peau de orange, retraction, discharge, masses) Breast/axilla inspection: normal inspection of the breasts Breast/axilla palpation: normal palpation of the breasts Resp Effort & Inspection: normal respiratory effort GI Inspection: Yes normal to inspection Palpation (GI): Soft to palpation Rectal Exam - Female: deferred General: Yes bladder normal to palpation External Female Exam: normal external appearance and normal appearance of the urethra Speculum Exam - Vagina: normal appearance of the vagina, normal palpation and normal vaginal discharge Speculum Exam - Cervix: normal appearance of the cervix, normal palpation and Other cervical findings present (IUD strings at the os) Bimanual exam- vagina & uterus: normal bimanual exam, normal palpation, uterine size normal, bladder normal to palpation, normal palpation and non-tender Bimanual Exam- Adnexa, other: no masses Skin General skin exam: no rashes or lesions noted Rashes: no rashes Neuro General: patient oriented x3 Cognition (Neuro): normal cognition Extrem General: Yes normal to inspection Psych Attitude: cooperative Thought process: Normal thought process present Assessment & Plan Assessment & Plan (1) Encounter for well woman exam with routine gynecological exam: Code(s): Z01.419 - Encounter for gynecological examination (general) (routine) without abnormal findings Category: Medical Plan Discussed: Current recommendations for pap smears per ASCCP guidelines. Pap obtained today. Breast awareness, periodic self breast exams and yearly mammogram. Maintain a healthy lifestyle, well balanced diet including Calcium 1,200 mg and Vitamin D 600 IU daily, and routine exercise. Patient verbalizes understanding and agrees to the plan of care. She was given opportunity to ask questions and all questions were answered to the best of my ability. RTO in 1 year for annual pharmacy care coordinator exam. This note is constructed using voice recognition software. While every effort has been made to ensure accuracy, credit manager errors may have been included. Orders: Orders Pap Smear Today Z01.419 - Encounter for gynecological examination (general) (routine) without abnormal findings HPV High risk Today Z01.419 - Encounter for gynecological examination (general) (routine) without abnormal findings Coding Level of Care Code Est Pt Prev Care 40-64y(41616) Diagnoses Encounter for well woman exam with routine gynecological exam Z01.419
[2025-01-29 13:46] VITALS: BP 140/82
== END 2025-01-29 14:28 | disposition home or self-care (01) ==
LOC: HO.HWS 13:42
PROVIDERS: PCP Family Medicine; Visit Provider Advanced Practice Midwife
DX: Z01.419 Encounter for gynecological examination (general) (routine) without abnormal findings (principal)
CPT/HCPCS: 99396; 99459

== ENCOUNTER 2025-01-29 13:41 | Outpatient (REF) | payer BC, SELFPAY | END 2025-01-29 13:42 | disposition home or self-care (01) | LOC: HO.LNP 13:41 | PROVIDERS: PCP Family Medicine; Visit Provider Advanced Practice Midwife | DX: Z01.419 Encounter for gynecological examination (general) (routine) without abnormal findings (principal); Z11.51 Encounter for screening for human papillomavirus (HPV); Z79.899 Other long term (current) drug therapy | CPT/HCPCS: 87626; 88175 ==